=== PATIENT | female | born 1990 | race Caucasian/White ===

== ENCOUNTER 2016-12-27 16:47 | Emergency (ER) | payer MEDICAID ==
[2016-12-27 16:52] VITALS: BP 130/60
[2016-12-27 18:11] LABS: Hematocrit 37 % (35-47); Hemoglobin 12.3 g/dl (12.0-16.0); Mean Corpuscular HGB Conc 33 g/dl (31-36); Mean Corpuscular Hemoglobin 26 pg (27-31); Mean Corpuscular Volume 79 fL (80-97); Mean Platelet Volume 8 um3 (7.4-10.4); Red Blood Count 4.73 10^6/ul (4.0-5.4); Red Cell Distribution Width 15 % (10.5-15); White Blood Count 13.2 10^3/ul (3.5-10.8)
[2016-12-27 18:25] LABS: Urine Bacteria Absent (Absent); Urine Bilirubin Negative (Negative); Urine Glucose Negative (Negative); Urine Nitrite Negative (Negative)
[2016-12-27 18:29] LABS: Albumin 3.6 g/dL (3.2-5.2); BUN/Creatinine Ratio 19.5 (8-20); Calcium 9.2 mg/dL (8.6-10.3); EGFR African American 245.1 (>60); EGFR Non-African American 190.6 (>60); Globulin 3.2 g/dL (2-4); Potassium 3.4 mmol/L (3.5-5.0); Total Bilirubin 0.2 mg/dL (0.2-1.0); Total Protein 6.8 g/dL (6.4-8.9)
--- NOTE | 2016-12-27 18:46 | RAD ---
HISTORY: Cramping and vaginal bleeding in a female. Gestational age is unknown due to last menstrual period unknown. Comparison: None Multiple transabdominal real time images of the gravid uterus were obtained. This exam demonstrates a single intrauterine in the breech presentation. heart and limb motion were noted. The heart rate was 163 beats per minute. The placenta was located Posterior. There is currently complete placenta previa. The cervix is closed measuring 3.9 cm in length. The amniotic fluid volume appeared to be within normal limits measuring approximately 6.9 cm Biparietal diameter (cm) 3.73 which corresponds to a gestational age of 17 weeks and 3 days. Head circumference (cm) 13.97 which corresponds to a gestational age of 17 weeks and 3 the. abdominal circumference(cm) 12.0 to which corresponds to a gestational age of 17 weeks and 5 days. femur length (cm) 2.3 which corresponds to a gestational age of 7 weeks and 2 days. The composite estimated gestational age was 17 weeks and 4 day. The estimated weight at this time is 195 grams +/- 29 grams. A cine was recorded of the venous is four-chamber heart. IMPRESSION: Single live intrauterine gestation with composite growth parameters indicating average gestational age of 17 weeks and 2 days. At this stage of there is a complete placenta previa.
[2016-12-27] MEDS ORDERED: Fluconazole 100 MG TAB* TAB PO ONE (19:00)
--- NOTE | 2016-12-27 21:22 | ED ---
Ernestine Nolasco Anna, scribed for Rupert Jones MD on 12/27/16 at 1750 . GI/ HPI - HPI Summary HPI Summary: Pt is a 26 y/o female coming to [facility] presenting with vaginal bleeding that began last night at 2300. She additionally reports cramping abdominal pain with a severity of 4/10. The cramping is somewhat better today compared to last night. The bleeding is at a spotting level. She also has some vaginal discharge. She is currently 17 weeks . She took Tylenol for the pain last night, which did not alleviate the symptoms. LNMP was 07/2017. She was last seen by Duane [facility]IR in [place]. Her history is significant for a , an ovarian cyst, and a subchorionic hemorrhage. - History of Current Complaint Chief Complaint: EDVaginalBleeding Time Seen by Provider: 12/27/16 17:26 Stated Complaint: 17 WEEKS PREG/VAG BLEEDING Hx Obtained From: Patient Onset/Duration: Started Days Ago, Still Present Timing: Lasting Days Pain Intensity: 4 - Allergy/Home Medications Allergies/Adverse Reactions: Allergies Allergy/AdvReac Type Severity Reaction Status Date / Time No Known Allergies Allergy Verified 09/21/16 14:21 Home Medications: Home Medications Vitamin [Calna] 1 tab PO DAILY 12/27/16 [History Confirmed 12/27/16] PMH/Surg Hx/FS Hx/Imm Hx History: Reports: Other Problems/Disorders - Hx ovarian cyst, subchorionic hemorrhage - Surgical History Surgery Procedure, Year, and Place: Infectious Disease History: No Infectious Disease History: Denies: Traveled Outside the US in Last 30 Days - Family History Known Family History: Negative: Cardiac Disease, Diabetes - Social History Lives: With Family Alcohol Use: Rare Substance Use Type: Reports: None Smoking Status (MU): Never Smoked Tobacco Review of Systems Positive: Abdominal Pain Genitourinary: Other - vaginal bleeding Positive: discharge All Other Systems Reviewed And Are Negative: Yes Physical Exam - Summary Physical Exam Summary: General: No distress, comfortable, pleasant, alert HEENT: Moist mucosa, Pupils equal Neck: Soft, supple, no adenopathy, no edema Heart: S1, S2, RRR. No murmurs, rubs, gallops Lungs: Clear, breathing comfortably, no wheezes or rales Abd: Gravid, fundal height is height of umbilicus. No guarding or significant tenderness. 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 External labia minora swelling. Internal cottage cheese-like discharge, slightly yellow. No cervical friability. No cervical discharge. No cervical motion tenderness. Triage Information Reviewed: Yes Vital Signs On Initial Exam: Initial Vitals Temp Pulse Resp BP Pulse Ox 98.2 F 80 16 130/60 99 12/27/16 16:50 12/27/16 16:50 12/27/16 16:50 12/27/16 16:50 12/27/16 16:50 Vital Signs Reviewed: Yes Diagnostics - Vital Signs Vital Signs Temp Pulse Resp BP Pulse Ox 12/27/16 16:50 98.2 F 80 16 130/60 99 - Laboratory Lab Results: Lab Results 12/27/16 12/27/16 12/27/16 Range/Units 18:00 18:00 18:00 WBC 13.2 H (3.5-10.8) 10^3/ul RBC 4.73 (4.0-5.4) 10^6/ul Hgb 12.3 (12.0-16.0) g/dl Hct 37 (35-47) % MCV 79 L (80-97) fL MCH 26 L (27-31) pg MCHC 33 (31-36) g/dl RDW 15 (10.5-15) % Plt Count 357 (150-450) 10^3/ul MPV 8 (7.4-10.4) um3 Neut % (Auto) 76.5 (38-83) % Lymph % (Auto) 16.4 L (25-47) % [place] % (Auto) 5.2 (1-9) % Eos % (Auto) 1.2 (0-6) % Baso % (Auto) 0.7 (0-2) % Absolute Neuts (auto) 10.1 H (1.5-7.7) 10^3/ul Absolute Lymphs (auto) 2.2 (1.0-4.8) 10^3/ul Absolute Monos (auto) 0.7 (0-0.8) 10^3/ul Absolute Eos (auto) 0.2 (0-0.6) 10^3/ul Absolute Basos (auto) 0.1 (0-0.2) 10^3/ul Absolute Nucleated RBC 0 10^3/ul Nucleated RBC % 0 INR (Anticoag Therapy) 0.94 (0.89-1.11) APTT 28.6 (26.0-36.3) seconds Sodium (133-145) mmol/L Potassium (3.5-5.0) mmol/L Chloride (101-111) mmol/L Carbon Dioxide (22-32) mmol/L Anion Gap (2-11) mmol/L BUN (6-24) mg/dL Creatinine (0.51-0.95) mg/dL Est GFR ( Amer) (>60) Est GFR (Non-Af Amer) (>60) BUN/Creatinine Ratio (8-20) Glucose (70-100) mg/dL Calcium (8.6-10.3) mg/dL Total Bilirubin (0.2-1.0) mg/dL AST (13-39) U/L ALT (7-52) U/L Alkaline Phosphatase (34-104) U/L Total Protein (6.4-8.9) g/dL Albumin (3.2-5.2) g/dL Globulin (2-4) g/dL Albumin/Globulin Ratio (1-3) Beta HCG, Quant mIU/mL Urine Color Yellow Urine Appearance Cloudy Urine pH 6.0 (5-9) Ur Specific [place] 1.014 (1.010-1.030) Urine Protein Negative (Negative) Urine Ketones Negative (Negative) Urine Blood 1+ H (Negative) Urine Nitrate Negative (Negative) Urine Bilirubin Negative (Negative) Urine Urobilinogen Negative (Negative) Ur Leukocyte Esterase 3+ H (Negative) Urine WBC (Auto) 3+(>20/hpf) H (Absent) Urine RBC (Auto) 3+(>10/hpf) H (Absent) Ur Squamous Epith Cells Present H (Absent) Urine Bacteria Absent (Absent) Urine Glucose Negative (Negative) Blood Type Antibody Screen 12/27/16 12/27/16 Range/Units 18:00 18:00 WBC (3.5-10.8) 10^3/ul RBC (4.0-5.4) 10^6/ul Hgb (12.0-16.0) g/dl Hct (35-47) % MCV (80-97) fL MCH (27-31) pg MCHC (31-36) g/dl RDW (10.5-15) % Plt Count (150-450) 10^3/ul MPV (7.4-10.4) um3 Neut % (Auto) (38-83) % Lymph % (Auto) (25-47) % [place] % (Auto) (1-9) % Eos % (Auto) (0-6) % Baso % (Auto) (0-2) % Absolute Neuts (auto) (1.5-7.7) 10^3/ul Absolute Lymphs (auto) (1.0-4.8) 10^3/ul Absolute Monos (auto) (0-0.8) 10^3/ul Absolute Eos (auto) (0-0.6) 10^3/ul Absolute Basos (auto) (0-0.2) 10^3/ul Absolute Nucleated RBC 10^3/ul Nucleated RBC % INR (Anticoag Therapy) (0.89-1.11) APTT (26.0-36.3) seconds Sodium 132 L (133-145) mmol/L Potassium 3.4 L (3.5-5.0) mmol/L Chloride 103 (101-111) mmol/L Carbon Dioxide 23 (22-32) mmol/L Anion Gap 6 (2-11) mmol/L BUN 8 (6-24) mg/dL Creatinine 0.41 L (0.51-0.95) mg/dL Est GFR ( Amer) 245.1 (>60) Est GFR (Non-Af Amer) 190.6 (>60) BUN/Creatinine Ratio 19.5 (8-20) Glucose 90 (70-100) mg/dL Calcium 9.2 (8.6-10.3) mg/dL Total Bilirubin 0.20 (0.2-1.0) mg/dL AST 14 (13-39) U/L ALT 12 (7-52) U/L Alkaline Phosphatase 67 (34-104) U/L Total Protein 6.8 (6.4-8.9) g/dL Albumin 3.6 (3.2-5.2) g/dL Globulin 3.2 (2-4) g/dL Albumin/Globulin Ratio 1.1 (1-3) Beta HCG, Quant 81134.00 mIU/mL Urine Color Urine Appearance Urine pH (5-9) Ur Specific [place] (1.010-1.030) Urine Protein (Negative) Urine Ketones (Negative) Urine Blood (Negative) Urine Nitrate (Negative) Urine Bilirubin (Negative) Urine Urobilinogen (Negative) Ur Leukocyte Esterase (Negative) Urine WBC (Auto) (Absent) Urine RBC (Auto) (Absent) Ur Squamous Epith Cells (Absent) Urine Bacteria (Absent) Urine Glucose (Negative) Blood Type O Positive Antibody Screen Negative Result Diagrams: 12/27/16 18:00 12/27/16 18:00 Lab Statement: Any lab studies that have been ordered have been reviewed, and results considered in the medical decision making process. - Ultrasound No standard instances Ultrasound Interpretation: Positive (See Comments) Ultrasound Interpretation Completed By: Radiologist - US IMPRESSION: Single live intrauterine gestation with composite growth parameters indicating average gestational age of 17 weeks and 2 days. At this stage of there is a complete placenta previa. GIGU Course/Dx - Course Assessment/Plan: She presents for spotting and cramping both of which have largely resolved. She has symptoms as well as signs consistent with yeast infection. US shows single IUP with complete placenta previa. We recommend pelvic rest until cleared by new OB doctor. We will consult OB to arrange for earlier follow up. UA shows 20 WCs. Will await culture before treating. Otherwise, she is to return immediately for any worsening symptoms or heavier bleeding. - Diagnoses Provider Diagnoses: Placenta previa, Vaginal bleeding before 22 weeks gestation, Yeast vaginitis - Physician Notifications Discussed Care Of Patient With: Dr. Guzman (OBGYN) at 1905. Will arrange for follow up with the patient in this coming week. Discharge - Discharge Plan Condition: Good Disposition: HOME Patient Education Materials: Threatened Miscarriage (ED) Referrals: No Primary Care Phys,NOPCP [Primary Care Provider] - Additional Instructions: follow up with your new OB doctor as we described. Pelvic rest until told otherwise by your new OB. The documentation as recorded by the Ernestine tovar Anna accurately reflects the service I personally performed and the decisions made by me, Rupert Jones MD.
== END 2016-12-27 19:26 | disposition home or self-care (01) ==
LOC: ED 16:47
DX: O20.9 Hemorrhage in early pregnancy, unspecified (principal); O44.02 Complete placenta previa NOS or without hemorrhage, second trimester; Z3A.22 22 weeks gestation of pregnancy; R10.9 Unspecified abdominal pain; N76.0 Acute vaginitis
CPT/HCPCS: 36415; 76815; 80053; 81003; 81015; 84702; 85025; 85610; 85730; 86850; 86900; 86901; 87086; 87480; 87491; 87510; 87591; 99282; A9270-GY

== ENCOUNTER 2017-03-28 13:07 | Emergency (ER) | payer OTHER ==
[2017-03-28 13:46] VITALS: BP 118/64
[2017-03-28 14:12] LABS: Urine Bacteria 1+ (Absent); Urine Bilirubin Negative (Negative); Urine Glucose Negative (Negative); Urine Nitrite Negative (Negative)
[2017-03-28] MEDS ORDERED: Nitrofurantoin Macrocrystals* 50 MG CAP PO ONE (15:25)
--- NOTE | 2017-03-29 14:42 | ED ---
Danyelle Nolasco Matthew, scribed for Gomez Kauffman MD on 03/28/17 at 1424 . Abdominal Pain/Female - HPI Summary HPI Summary: A 26 y/o 30 week female presents with intermittent right flank pain since last night that is described as cramping/sharp. The pain is unaffected by movement. She a recent Hx of UTI, yeast infection, and now a bladder infection. She received Abx on 02/24 from her [facility]; however she states that she continues to have dysuria during urination and afterwards. She's been one other time. - History of Current Complaint Chief Complaint: Miley Stated Complaint: 30 WEEKS PREG CRAMPING Time Seen by Provider: 03/28/17 13:24 Hx Obtained From: Patient ?: Yes Onset/Duration: Lasting Days - yesterday, Still Present Timing: Intermittent Episode Lasting Severity Initially: Moderate Severity Currently: Moderate Pain Intensity: 6 Pain Scale Used: 0-10 Numeric Location: Flank - RT Character: Sharp, Cramping Aggravating Factor(s): Nothing Alleviating Factor(s): Nothing Associated Signs and Symptoms: Positive: Urinary Symptoms - dysuria Allergies/Adverse Reactions: Allergies Allergy/AdvReac Type Severity Reaction Status Date / Time No Known Allergies Allergy Verified 03/28/17 14:01 PMH/Surg Hx/FS Hx/Imm Hx Endocrine/Hematology History: Denies: Hx Diabetes History: Reports: Other Problems/Disorders - Hx ovarian cyst, subchorionic hemorrhage - Surgical History Surgery Procedure, Year, and Place: Infectious Disease History: Denies: Traveled Outside the [place] in Last 30 Days - Family History Known Family History: Negative: Cardiac Disease, Diabetes Family History: pt denies significant FHx - Social History Alcohol Use: Rare Substance Use Type: Reports: None Smoking Status (MU): Never Smoked Tobacco Review of Systems Constitutional: Negative Eyes: Negative ENT: Negative Cardiovascular: Negative Respiratory: Negative Positive: Abdominal Pain - intermittent RT flank pain Positive: dysuria Musculoskeletal: Negative Skin: Negative Neurological: Negative Psychological: Normal All Other Systems Reviewed And Are Negative: Yes Physical Exam Triage Information Reviewed: Yes Vital Signs On Initial Exam: Initial Vitals Temp Pulse Resp BP Pulse Ox 97.8 F 89 18 122/74 100 03/28/17 13:09 03/28/17 13:09 03/28/17 13:09 03/28/17 13:09 03/28/17 13:09 Vital Signs Reviewed: Yes Appearance: Positive: Well-Appearing, No Pain Distress Skin: Positive: Warm, Skin Color Reflects Adequate Perfusion, Dry Head/Face: Positive: Normal Head/Face Inspection Eyes: Positive: Normal ENT: Positive: Normal ENT inspection Neck: Positive: Supple, Nontender Respiratory/Lung Sounds: Positive: Clear to Auscultation, Breath Sounds Present Cardiovascular: Positive: RRR Abdomen Description: Positive: Nontender, Soft, Other: - Gravid abdomen Bowel Sounds: Positive: Present Musculoskeletal: Positive: Normal, Strength/ROM Intact Neurological: Positive: Normal, Alert, Oriented to Person Place, Time Psychiatric: Positive: Affect/Mood Appropriate Diagnostics - Vital Signs Vital Signs Temp Pulse Resp BP Pulse Ox 03/28/17 13:09 97.8 F 89 18 122/74 100 - Laboratory Lab Results: Lab Results 03/28/17 Range/Units 13:39 Urine Color Yellow Urine Appearance Cloudy Urine pH 6.0 (5-9) Ur Specific [place] 1.006 L (1.010-1.030) Urine Protein Negative (Negative) Urine Ketones Negative (Negative) Urine Blood 1+ H (Negative) Urine Nitrate Negative (Negative) Urine Bilirubin Negative (Negative) Urine Urobilinogen Negative (Negative) Ur Leukocyte Esterase 3+ H (Negative) Urine WBC (Auto) 3+(>20/hpf) H (Absent) Urine RBC (Auto) Trace(0-2/hpf) (Absent) Ur Squamous Epith Cells Present H (Absent) Urine Bacteria 1+ H (Absent) Urine Glucose Negative (Negative) Lab Statement: Any lab studies that have been ordered have been reviewed, and results considered in the medical decision making process. Abdominal Pain Fem Course/Dx - Course Course Of Treatment: Ms. Luis had a UTI diagnosed on 02/24 and then had similar symptoms and was diagnosed with candidiasis. Now she has symptoms again although she feels as though her symptoms never really completely abated. He U/ A is positive and given she is 3rd trimester, I will treat her again. - Diagnoses Provider Diagnoses: UTI (urinary tract infection) Discharge - Discharge Plan Condition: Stable Disposition: HOME Prescriptions: Nitrofurantoin Macrocrystals* [Macrodantin*] 50 mg PO Q6HR #27 cap Patient Education Materials: Nitrofurantoin Macrocrystals (By mouth), Urinary Tract Infection in (ED) Referrals: [facility] [place] PHYSICIAN REFERRAL [Outside] - 4 Days Additional Instructions: Please follow-up with your primary care physician in 4 days. The documentation as recorded by the Danyelle tovar Matthew accurately reflects the service I personally performed and the decisions made by me, Gomez Kauffman MD.
--- NOTE | 2017-03-30 10:07 | ED ---
Progress - Progress Note Progress Note: Pt's urine cx reveals e. coli 10-25,000 - was started on nitrofurantoin - sensitivities pending Course/Dx - Course Course Of Treatment: Ms. Luis had a UTI diagnosed on 02/24 and then had similar symptoms and was diagnosed with candidiasis. Now she has symptoms again although she feels as though her symptoms never really completely abated. He U/ A is positive and given she is 3rd trimester, I will treat her again. - Diagnoses Provider Diagnoses: UTI (urinary tract infection)
== END 2017-03-28 16:03 | disposition home or self-care (01) ==
LOC: ED 13:07
DX: N39.0 Urinary tract infection, site not specified (principal); R30.0 Dysuria; R10.84 Generalized abdominal pain
CPT/HCPCS: 81003; 81015; 87077; 87086; 87186; 99282; A9270-GY

== ENCOUNTER 2017-05-18 09:29 | Inpatient (IN) | payer OTHER ==
[2017-05-18 11:24] LABS: Hematocrit 41 % (35-47); Hemoglobin 13.1 g/dl (12.0-16.0); Mean Corpuscular HGB Conc 32 g/dl (31-36); Mean Corpuscular Hemoglobin 27 pg (27-31); Mean Corpuscular Volume 85 fL (80-97); Mean Platelet Volume 9 um3 (7.4-10.4); Red Blood Count 4.85 10^6/ul (4.0-5.4); Red Cell Distribution Width 17 % (10.5-15)
[2017-05-18 11:51] LABS: Albumin 3.3 g/dL (3.2-5.2); BUN/Creatinine Ratio 11.4 (8-20); Calcium 8.9 mg/dL (8.6-10.3); EGFR African American 132.2 (>60); EGFR Non-African American 102.8 (>60); Globulin 3.2 g/dL (2-4); Potassium 3.8 mmol/L (3.5-5.0); Total Bilirubin 0.4 mg/dL (0.2-1.0); Total Protein 6.5 g/dL (6.4-8.9); Uric Acid 6.2 mg/dL (2.3-6.6)
[2017-05-18] MEDS: Amoxicillin CAP* 500 MG PO SCH ×2 (12:48→21:15)
[2017-05-18] MEDS ORDERED: Acetaminophen TAB* 325 MG PO PRN (15:07)
[2017-05-19] MEDS: Amoxicillin CAP* 500 MG PO SCH (09:34)
[2017-05-19 10:46] LABS: Urine Total Protein/24HR 320 mg/24Hr (0-165)
[2017-05-19 13:24] LABS: Hematocrit 40 % (35-47); Hemoglobin 13.4 g/dl (12.0-16.0); Mean Corpuscular HGB Conc 34 g/dl (31-36); Mean Corpuscular Hemoglobin 28 pg (27-31); Mean Corpuscular Volume 83 fL (80-97); Mean Platelet Volume 10 um3 (7.4-10.4); Red Blood Count 4.79 10^6/ul (4.0-5.4); Red Cell Distribution Width 17 % (10.5-15); White Blood Count 11.9 10^3/ul (3.5-10.8)
[2017-05-19] MEDS ORDERED: ceFOXitin 2 GM IVPREMIX* 2 GM/50 ML BAG IVPB ONE (13:24)
[2017-05-19] MEDS ORDERED: Sodium Citrate/Citric Acid* 15 ML UDC PO ONE (13:24)
[2017-05-19] MEDS ORDERED: Morphine PF AMP (0.5MG/ML)* 5 MG/10 ML AMP ONE (15:49)
[2017-05-19] MEDS ORDERED: OXYTOCIN* 10 UNITS/ML 1 ML VIAL ONE (15:49)
[2017-05-19] MEDS ORDERED: Ondansetron INJ* 2 MG/ML VIAL ONE (15:49)
[2017-05-19] MEDS ORDERED: Dexamethasone IV* 4 MG/ML 1 ML (4 MG) ONE (15:49)
[2017-05-19] MEDS ORDERED: EPHEDrine (Pressors)* 50 MG/ML VIAL ONE (16:16)
[2017-05-19] MEDS ORDERED: Acetaminophen IV 1GM/100ML * 100 ML IVPB ONE (16:36)
[2017-05-19] MEDS ORDERED: fentaNYL* 50 MCG/ML 2 ML VIAL (100 MCG VIAL) IV PRN (16:36)
[2017-05-19] MEDS ORDERED: Ketorolac INJ* 30 MG/ML 1 ML VIAL IV PRN (16:36)
[2017-05-19] MEDS ORDERED: Nalbuphine* 20 MG/ML 1 ML VIAL IV PRN ×2 (16:36→16:38)
[2017-05-19] MEDS ORDERED: PROCHLORPERAZINE INJ 5 MG/ML 2 ML VIAL IV PRN ×2 (16:36→16:38)
[2017-05-19] MEDS ORDERED: oxyCODONE TAB* 5 MG TAB PO PRN ×2 (16:36→16:38)
[2017-05-19] MEDS ORDERED: Scopolamine 1.5 mg* PATCH TRANSDERM PRN (16:38)
[2017-05-19] MEDS ORDERED: Ondansetron INJ* 2 MG/ML VIAL IV PRN (16:38)
[2017-05-19] MEDS ORDERED: Scopolomine PATCH Remove* 1 NOTE MISC PATCH OFF PRN (16:38)
[2017-05-19] MEDS ORDERED: Naloxone* 0.4 MG/ML 1 ML VIAL IV PRN (16:38)
[2017-05-19] MEDS ORDERED: Witch Hazel PAD* JAR TOPICAL PRN (17:05)
[2017-05-19] MEDS ORDERED: Zolpidem TAB* 5 MG PO PRN (17:05)
[2017-05-19] MEDS ORDERED: Dibucaine 1% 28.35 GM TUBE PR PRN (17:05)
[2017-05-19] MEDS ORDERED: Glycerin ADULT SUPP PR PRN (17:05)
[2017-05-20] MEDS: Acetaminophen TAB* 325 MG PO SCH ×2 (01:13→09:29)
[2017-05-20] MEDS: Simethicone CHEW TAB* 80 MG PO SCH ×5 (01:16→21:34)
[2017-05-20] MEDS: Docusate CAP* 100 MG PO SCH ×4 (01:16→21:34)
[2017-05-20] MEDS: oxyCODONE/Acetamin 5/325 MG* TAB PO PRN ×4 (06:57→21:34)
[2017-05-20 07:45] LABS: Hematocrit 34 % (35-47); Hemoglobin 11.1 g/dl (12.0-16.0); Mean Corpuscular HGB Conc 32 g/dl (31-36); Mean Corpuscular Hemoglobin 27 pg (27-31); Mean Corpuscular Volume 84 fL (80-97); Mean Platelet Volume 9 um3 (7.4-10.4); Red Blood Count 4.05 10^6/ul (4.0-5.4); Red Cell Distribution Width 16 % (10.5-15); White Blood Count 24.1 10^3/ul (3.5-10.8)
[2017-05-20 07:46] LABS: Add Diff/Slide Review? Slide Review Added; Comments Flag Yes
[2017-05-20] MEDS: Ibuprofen TAB* 600 MG PO PRN ×3 (08:44→21:34)
[2017-05-20] MEDS ORDERED: Ferrous Gluconate TAB* 324 MG TAB PO SCH (09:00)
[2017-05-20] MEDS ORDERED: Acetaminophen TAB* 325 MG PO PRN (17:00)
--- NOTE | 2017-05-20 23:44 | OP ---
DATE OF OPERATION: 05/19/17 - ROOM #[id number]-101 TIME: 05:15 p.m. DATE OF : 92 SURGEON: Deyvi Velasco MD. PASSENGER REPRESENTATIVE: Gladis Shukla, Lute Packer Or Applier. ANESTHESIA: Spinal. PRE-OP DIAGNOSIS: Intrauterine at 38 weeks with preeclampsia and a previous section. The patient desires a repeat section. POST-OP DIAGNOSIS: Intrauterine at 38 weeks with preeclampsia and a previous section. The patient desires a repeat section. OPERATIVE PROCEDURE: Repeat low transverse section with vacuum assistance of delivery of the head. ESTIMATED BLOOD LOSS: 600 cc. SPECIMEN SENT TO PATHOLOGY: Cord blood. IV FLUIDS: She received 2800 cc of IV crystalloid fluid. URINE OUTPUT: Clear at 500 cc. FINDINGS: Delivery of a viable male with over clear fluid with a weight of 6 pounds and 2 ounces with Apgars of 9 and 9. The placenta was grossly intact with a three-vessel cord noted. The uterus, adnexa, bowel, and bladder were all within normal limits and there were no complications. DESCRIPTION OF PROCEDURE: The patient was taken to the operating room, where she was identified. She was placed on the operating table, where a spinal anesthetic was obtained without difficulty. She was then placed in the supine position with a leftward tilt, prepped and draped in a normal sterile fashion. A Pfannenstiel skin incision was made with a knife about 4 cm above the symphysis pubis and carried through to the underlying layer of fascia. The fascia was nicked in the midline and extended laterally with curved Vargas scissors. The fascia was then grasped superiorly and inferiorly with Ariel clamps and dissected off sharply from the rectus muscle. The rectus muscle was in the midline bluntly. The peritoneum was identified, grasped with pickups, and entered sharply with Metzenbaum scissors, and extended superiorly and inferiorly sharply. A bladder blade was then inserted into the patient's abdomen. A bladder flap was created using Metzenbaum scissors over which the bladder blade was then reinserted. A low-transverse incision was then made with a knife and extended laterally with bandage scissors. The amniotic sac was ruptured. The fluid was noted to be clear. The infant's head was then grasped. There was difficulty in delivering the baby's head, so a vacuum was applied to the baby's head and the head was delivered atraumatically. The vacuum was then removed. The 's mouth and nose were suctioned. The rest of the infant's body was then delivered. The cord was clamped and cut, and the infant was handed off to awaiting certified wellness program coordinator. Cord bloods were obtained. The placenta was then removed manually. The uterus was then exteriorized, cleared of all clot and debris using moist laparotomy sponges. The uterine incision was then closed with 0 Polysorb suture in a running locked fashion with a second imbricating layer of 0 Polysorb suture with good hemostasis noted. At this point, the uterus was then returned to the patient's abdomen. The gutters were then cleared of all clots and debris using moist laparotomy sponges. All the sponges and instruments were removed from the patient's abdomen. The peritoneum was then closed using 3-0 Polysorb suture in a running fashion. The fascia was closed using 0 Polysorb suture in a running fashion and the skin was closed with 4- 0 Monocryl subcuticular stitch. The patient tolerated the procedure well. Sponge, lap, needle counts were correct x2. She was then transferred to the recovery room area in stable condition. [id number]/[facility] #: [id number] ANABELA
[2017-05-21] MEDS ORDERED: diPHENhydraMINE PO* 50 MG PO ONE (00:35)
[2017-05-21] MEDS ORDERED: diPHENhydraMINE PO* 50 MG ONE (00:42)
[2017-05-21] MEDS: oxyCODONE/Acetamin 5/325 MG* TAB PO PRN ×5 (02:00→20:30)
[2017-05-21] MEDS: Ibuprofen TAB* 600 MG PO PRN ×3 (06:45→23:23)
[2017-05-21] MEDS: Simethicone CHEW TAB* 80 MG PO SCH ×4 (09:03→20:30)
[2017-05-21] MEDS: Docusate CAP* 100 MG PO SCH ×3 (09:03→20:30)
[2017-05-21 19:28] VITALS: BP 141/79
[2017-05-22] MEDS: oxyCODONE/Acetamin 5/325 MG* TAB PO PRN ×3 (00:28→09:33)
[2017-05-22] MEDS: Ibuprofen TAB* 600 MG PO PRN (05:26)
[2017-05-22] MEDS: Simethicone CHEW TAB* 80 MG PO SCH (09:33)
[2017-05-22] MEDS: Docusate CAP* 100 MG PO SCH (09:33)
== END 2017-05-22 12:25 | disposition home or self-care (01) | DRG 540 ==
LOC: MCHOBOUT 09:29 → MCHOB 05-19 11:32
PROVIDERS: ADMIT Obstetrics & Gynecology; ATTEND Obstetrics & Gynecology
PROC: 10D00Z1 Extraction of Products of Conception, Low, Open Approach (ICD-10-PCS; 2017-05-19)
PROC: 4A1HX4Z Monitoring of Products of Conception, Cardiac Electrical Activity, External Approach (ICD-10-PCS; principal; 2017-05-19 15:53)
DX: O14.04 Mild to moderate pre-eclampsia, complicating childbirth (principal); O99.824 Streptococcus B carrier state complicating childbirth; O34.211 Maternal care for low transverse scar from previous cesarean delivery; Z3A.38 38 weeks gestation of pregnancy; Z37.0 Single live birth; O66.5 Attempted application of vacuum extractor and forceps
CPT/HCPCS: 36415; 80053; 84156; 84550; 85025; 85027; 86850; 86900; 86901; A9270-GY; J0694; J0780; J1100; J2300; J2405; J2590

== ENCOUNTER 2017-06-28 20:01 | Emergency (ER) | payer MEDICAID, OTHER ==
[2017-06-28 20:13] VITALS: BP 120/69
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
== END 2017-06-28 22:08 | disposition home or self-care (01) ==
LOC: UCEAST 20:01
DX: M54.2 Cervicalgia (principal); M54.6 Pain in thoracic spine; M54.5 Low back pain
CPT/HCPCS: 72050; 72070; 72110; 99211; G0463

== ENCOUNTER 2019-03-11 10:41 | Emergency (ER) | payer OTHER ==
--- NOTE | 2019-03-11 11:14 | ED ---
Psychiatric Complaint - HPI Summary HPI Summary: This patient is a 28 year old female presenting to [facility] [place] accompanied by friend with a chief complaint of SI and MHE since a week ago. Patient is brought to ED by her friend. Patient herself states she wishes to see a doctor for mental health medication. Since a week ago, patient has been off her medication and she states that she needs something for her depression and anxiety. Patient used to take fluoxetine. Patient states that she is sleeping and eating normally. Patient has been dealing with depression since 4 years ago. Patient reports SI. - History Of Current Complaint Chief Complaint: EDMentalHealth Time Seen by Provider: 03/11/19 11:00 Hx Obtained From: Patient Hx Last Menstrual Period: post 5 weeks Onset/Duration: Lasting Weeks - 1, Still Present Timing: Constant Severity Currently: Moderate Character: Depressed, Anxious Aggravating Factor(s): Nothing Alleviating Factor(s): Nothing Associated Signs And Symptoms: Negative: Sleep Disturbance, Appetite Change Related History: Positive For: Prior Psychiatric Issues Has Suicidal: Reports: Thoughts - Allergies/Home Medications Allergies/Adverse Reactions: Allergies Allergy/AdvReac Type Severity Reaction Status Date / Time No Known Allergies Allergy Verified 03/11/19 10:59 Home Medications: Home Medications NK [No Home Medications Reported] 03/11/19 [History Confirmed 03/11/19] PMH/Surg Hx/FS Hx/Imm Hx Previously Healthy: Yes Endocrine/Hematology History: Denies: Hx Diabetes History: Reports: Other Problems/Disorders - uti's Psychiatric History: Reports: Hx Anxiety, Hx Depression - Surgical History Surgery Procedure, Year, and Place: X2 Infectious Disease History: No Infectious Disease History: Denies: Traveled Outside the [place] in Last 30 Days - Family History Known Family History: Positive: Hypertension, Diabetes, Other - Cancer Negative: Cardiac Disease - Social History Lives: With Family Alcohol Use: Daily Hx Substance Use: No Substance Use Type: Reports: None Hx Tobacco Use: No Smoking Status (MU): Never Smoked Tobacco Have You Smoked in the Last Year: No Review of Systems Negative: Fever Positive: Anxious, Depressed, Other - SI All Other Systems Reviewed And Are Negative: Yes Physical Exam - Summary Physical Exam Summary: VITAL SIGNS: Reviewed. GENERAL: Patient is a well-developed and nourished female who is lying comfortable in the stretcher. Patient is not in any acute respiratory distress. HEAD AND FACE: No signs of trauma. No ecchymosis, hematomas or skull depressions. No sinus tenderness. EYES: PERRLA, EOMI x 2, No injected conjunctiva, no nystagmus. EARS: Hearing grossly intact. Ear canals and tympanic membranes are within normal limits. MOUTH: Oropharynx within normal limits. NECK: Supple, trachea is midline, no adenopathy, no JVD, no carotid bruit, no c- spine tenderness, neck with full ROM. CHEST: Symmetric, no tenderness at palpation LUNGS: Clear to auscultation bilaterally. No wheezing or crackles. CVS: Regular rate and rhythm, S1 and S2 present, no murmurs or gallops appreciated. ABDOMEN: Soft, non-tender. No signs of distention. No rebound no guarding, and no masses palpated. Bowel sounds are normal. EXTREMITIES: FROM in all major joints, no edema, no cyanosis or clubbing. NEURO: Alert and oriented x 3. No acute neurological deficits. Speech is normal and follows commands. SKIN: Dry and warm Triage Information Reviewed: Yes Vital Signs On Initial Exam: Initial Vitals Temp Pulse Resp BP Pulse Ox 99.6 F 100 18 142/94 98 03/11/19 10:54 03/11/19 10:54 03/11/19 10:54 03/11/19 10:54 03/11/19 10:54 Vital Signs Reviewed: Yes Diagnostics - Vital Signs Vital Signs Temp Pulse Resp BP Pulse Ox 03/11/19 10:54 99.6 F 100 18 142/94 98 - Laboratory Result Diagrams: 03/11/19 11:39 03/11/19 11:39 Lab Statement: Any lab studies that have been ordered have been reviewed, and results considered in the medical decision making process. Course/Dx - Course Assessment/Plan: Blood work w/o a significant abnormality. She is medically cleared. She is awaiting for a MHE. Patient is hemodynamically stable and A+O x 3. Mental health crystal evaluator, Dada Carson, reports that the patient is clear for discharge by Dr. Ramachandran. The patient is diagnosed with unspecified anxiety disorder. - Differential Dx/Clinical Impression Provider Diagnosis: Anxiety disorder, unspecified - Physician Notifications Discussed Care Of Patient With: Dada Carson - mental health crystal evaluator Time Discussed With Above Provider: 18:05 Instructed by Provider To: Other - Dada Carson, mental health crystal evaluator, reports that the patient is clear for discharge by Dr. Ramachandran, psychiatrist. The patient is diagnosed with unspecified anxiety disorder. Discharge - Sign-Out/Discharge Documenting (check all that apply): Patient Departure - Patient will be discharged home. Patient Received Moderate/Deep Sedation with Procedure: No - Discharge Plan Condition: Stable Disposition: HOME Patient Education Materials: Anxiety (ED) Referrals: [facility] [place] [place] PHYSICIAN REFERRAL [Outside] Additional Instructions: Follow up with services as planned. RETURN TO THE EMERGENCY DEPARTMENT FOR ANY NEW OR WORSENING SYMPTOMS. Instructions to copy and paste for Adult patients: Per completion of a mental health evaluation, you are cleared for release and do not require inpatient psychiatric hospitalization at this time. Please go to nearest emergency room or call 911 if safety concerns arise or condition worsens. Important Phone Numbers: [facility] ph:[phone] [facility] Crisis [facility] ph:[phone] National Suicide Prevention Lifeline ph:[phone] (6612) [facility] ph:[phone] Alcoholics Anonymous ph:[phone] [facility] ph:[phone] [employer] ph:[phone] Recommendation: Follow up with [facility] on Thursday to schedule intake. . Return to hospital, if needed. - Billing Disposition and Condition Condition: STABLE Disposition: Home - Attestation Statements Document Initiated by Scribe: Yes Documenting Scribe: Sara Christian Provider For Whom Tyrese is Documenting (Include Credential): Jono Landis MD Scribe Attestation: Sara Nolasco, scribed for Jono Landis MD on 03/11/19 at 2105. Scribe Documentation Reviewed: Yes Provider Attestation: The documentation as recorded by the Sara tovar accurately reflects the service I personally performed and the decisions made by me, Jono Landis MD Status of Scribe Document: Ready
[2019-03-11 11:47] LABS: ABS Basophils 0 10^3/ul (0-0.2); ABS Eosinophils 0 10^3/ul (0-0.6); ABS Lymphocytes 1.1 10^3/ul (1.0-4.8); ABS Monocytes 0.6 10^3/ul (0-0.8); ABS Neutrophils 5.2 10^3/ul (1.5-7.7); ABS Nucleated RBC 0 10^3/ul; Eosinophil % 0.6 %; Hematocrit 44 % (33-41); Hemoglobin 15.2 g/dL (12.0-16.0); Lymphocyte % 15.4 %; Mean Corpuscular HGB Conc 34 g/dL (31-36); Mean Corpuscular Hemoglobin 30 pg (27-31); Mean Corpuscular Volume 86 fL (80-97); Mean Platelet Volume 7.7 fL (7.4-10.4); Nucleated Red Blood Cells % 0.1; Platelet Count 271 10^3/uL (150-450); Red Blood Count 5.11 10^6 /uL (3.70-4.87); Red Cell Distribution Width 13 % (10.5-15); White Blood Count 6.9 10^3/uL (3.5-10.8)
[2019-03-11 12:14] LABS: ALT 16 U/L (7-52); AST 19 U/L (13-39); Albumin 4.7 g/dL (3.2-5.2); Albumin/Globulin Ratio 1.6 (1-3); Alkaline Phosphatase 95 U/L (34-104); Anion Gap 6 mmol/L (2-11); BUN/Creatinine Ratio 9.5 (8-20); Blood Urea Nitrogen 7 mg/dL (6-24); CO2 Carbon Dioxide 26 mmol/L (22-32); Calcium 9.5 mg/dL (8.6-10.3); Chloride 107 mmol/L (101-111); EGFR African American 114.8 (>60); EGFR Non-African American 94.9 (>60); Glucose 108 mg/dL (70-100); Potassium 3.7 mmol/L (3.5-5.0); Sodium 139 mmol/L (135-145); Total Protein 7.7 g/dL (6.4-8.9)
[2019-03-11 12:18] LABS: Urine Appearance Cloudy; Urine Bacteria Absent (Absent); Urine Bilirubin Negative (Negative); Urine Blood 2+ (Negative); Urine Color Yellow; Urine Glucose Negative (Negative); Urine Ketones Negative (Negative); Urine Nitrite Negative (Negative); Urine Protein Negative (Negative); Urine Red Blood Cell Trace(0-2/hpf) (Absent); Urine Specific Gravity 1.014 (1.010-1.030); Urine Squamous Epithelial Cell Present (Absent); Urine Urobilinogen Negative (Negative); Urine White Blood Cell Absent (Absent)
[2019-03-11 12:31] LABS: Alcohol < 10 mg/dL (<10); Salicylate < 2.50 mg/dL (<30)
[2019-03-11 12:35] LABS: Urine Benzodiazepine Screen None Detected (None Detect); Urine Opiates Screen None Detected (None Detect)
[2019-03-11 12:45] LABS: TSH (Thyroid Stimulating Horm) 4.72 mcIU/mL (0.34-5.60)
[2019-03-11 12:49] LABS: Acetaminophen 1 mcg/mL
[2019-03-11 18:22] VITALS: BP 125/71
== END 2019-03-11 18:21 | disposition home or self-care (01) ==
LOC: ED 10:41
DX: F41.9 Anxiety disorder, unspecified (principal); R45.851 Suicidal ideations; F32.9 Major depressive disorder, single episode, unspecified
CPT/HCPCS: 36415; 80053; 80307; 80320; 80329; 81003; 81015; 84443; 85025; 99285; G0480

== ENCOUNTER 2019-12-01 22:56 | Observation (INO) | payer OTHER ==
--- NOTE | 2019-12-01 23:10 | ED ---
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 Since syncopal episode complains of blurry vision, altered mental status , weakness, and difficulty ambulating. States she was feeling fine prior to syncopal episode. Denies history of syncopal episodes. Denies new medications , injury due to syncopal episode. Denies EtOH, recreational drug use. Denies symptoms of illness or pain. Patient has history of anxiety. - History Of Current Complaint Chief Complaint: EDDizziness Time Seen by Provider: 12/01/19 23:08 Hx Obtained From: Patient Onset/Duration: Sudden Onset Timing: Intermittent Episode Lasting Context: Witnessed Activity At Onset: Exertion Associated Head Trauma: No Aggravating Factor(s): Nothing Alleviating Factor(s): Spontaneous Resolution Associated Signs And Symptoms: AMS, Lightheadedness - Allergies/Home Medications Allergies/Adverse Reactions: Allergies Allergy/AdvReac Type Severity Reaction Status Date / Time No Known Allergies Allergy Verified 03/11/19 10:59 Home Medications: Home Medications Gabapentin CAP(*) [Neurontin 400 mg CAP(*)] 400 mg PO TID 12/02/19 [History Confirmed 12/02/19] PARoxetine HCl [Paxil] 60 mg PO DAILY 12/02/19 [History Confirmed 12/02/19] Prazosin 1 mg CAP [Minipress 1 mg CAP] 3 mg PO DAILY 12/02/19 [History Confirmed 12/02/19] Quetiapine Fumarate [Seroquel 300 MG] 300 mg PO DAILY 12/02/19 [History Confirmed 12/02/19] clonazePAM [Clonazepam] 1 mg PO TID PRN 12/02/19 [History Confirmed 12/02/19] PMH/Surg Hx/FS Hx/Imm Hx Endocrine/Hematology History: Denies: Hx Diabetes Cardiovascular History: Denies: Hx Pacemaker/ICD History: Reports: Other Problems/Disorders - uti's Sensory History: Denies: Hx Eye Prosthesis Opthamlomology History: Denies: Hx Legally Blind EENT History: Denies: Hx Deafness Psychiatric History: Reports: Hx Anxiety, Hx Depression Denies: Hx Eating Disorder, Hx of Violent Episodes Against Others - Surgical History Surgery Procedure, Year, and Place: X2 Infectious Disease History: No Infectious Disease History: Denies: Traveled Outside the [place] in Last 30 Days - Family History Known Family History: Positive: Hypertension, Diabetes, Other - Cancer Negative: Cardiac Disease - Social History Alcohol Use: Daily Hx Substance Use: No Substance Use Type: Reports: None Hx Tobacco Use: No Smoking Status (MU): Never Smoked Tobacco Have You Smoked in the Last Year: No Review of Systems Constitutional: Negative Eyes: Negative ENT: Negative Cardiovascular: Negative Respiratory: Negative Gastrointestinal: Negative Genitourinary: Negative Musculoskeletal: Negative Skin: Negative Positive: Syncope Psychological: Normal All Other Systems Reviewed And Are Negative: Yes Physical Exam - Summary Physical Exam Summary: No visual field loss. Truncal and fine motor ataxia. Patient has difficulty sitting up or standing. Patient wavers on nose to finger test. Somnolent, slow to respond. No nystagmus noted. Triage Information Reviewed: Yes Vital Signs On Initial Exam: Initial Vitals Temp Pulse Resp BP Pulse Ox 98.4 F 59 16 119/68 98 12/01/19 22:57 12/01/19 22:57 12/01/19 22:57 12/01/19 22:57 12/01/19 22:57 Vital Signs Reviewed: Yes Appearance: Positive: Well-Appearing Skin: Positive: Warm Head/Face: Positive: Normal Head/Face Inspection Eyes: Positive: Normal Neck: Positive: Supple Respiratory/Lung Sounds: Positive: Clear to Auscultation Cardiovascular: Positive: Normal Abdomen Description: Positive: Nontender Musculoskeletal: Positive: Normal Neurological: Negative: Facial Droop, Slurred Speech Psychiatric: Positive: Other AVPU Assessment: Alert - Quinn Coma Scale Best Eye Response: 4 - Spontaneous Best Motor Response: 6 - Obeys Commands Best Verbal Response: 5 - Oriented Coma Scale Total: 15 Procedures - Sedation Patient Received Moderate/Deep Sedation with Procedure: No Diagnostics - Vital Signs Vital Signs Temp Pulse Resp BP Pulse Ox 12/01/19 22:57 98.4 F 59 16 119/68 98 - Laboratory Result Diagrams: 12/02/19 15:42 12/02/19 15:42 Lab Statement: Any lab studies that have been ordered have been reviewed, and results considered in the medical decision making process. 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 Since syncopal episode complains of blurry vision , altered mental status, weakness, and difficulty ambulating. States she was feeling fine prior to syncopal episode. Denies history of syncopal episodes. Denies new medications, injury due to syncopal episode. Denies EtOH, recreational drug use. Denies symptoms of illness or pain. Patient has history of anxiety. Heart rate in the 50s. Vital signs otherwise within normal limits. Labs unremarkable. Toxicology screen negative. Also evaluated by attending Dr. Kinney suggested CT brain and CTA head and neck. Studies negative. Discussed patient with neurology Dr. Love who recommended admission and MRI with and without contrast when possible. Patient neurological symptoms not progressive during stay in the ED. Admitted to hospitalist. - Diagnoses Provider Diagnoses: Syncope, Blurry vision, Ataxia, Altered mental status Discharge ED - Sign-Out/Discharge Documenting (check all that apply): Patient Departure - Discharge Plan Condition: Stable Disposition: ADMITTED TO [facility] - Billing Disposition and Condition Condition: STABLE Disposition: Admitted to [facility]
[2019-12-01] MEDS ORDERED: NS 0.9% 1000 ML** 1,000 ML IV ONE (23:17)
--- OUTSIDE RECORDS SUMMARY | 2019-12-01 23:45 | XMS REPORT | Continuity of Care Document ---
:1990 Author Organization [facility] Allergies and Intolerances No Allergy Data in the System Medications RxNorm Medication Dose Route Instructions Start Date End Date Status 19741224 Clonazepam 1 MG 1 mg oral orally 3 times per Active Oral Tablet day as needed. 359334 gabapentin 400 MG 400 MG ORAL 3 TIMES A DAY FOR Active Oral Capsule BHU 624012 Hydroxyzine Pamoate 50 MG ORAL EVERY 6 HOURS Active 50 MG Oral Capsule NEEDED as needed. 52107 Paroxetine 60 mg oral orally daily Active 020520 Prazosin 1 MG Oral 3 MG ORAL AT BEDTIME (NOTE: Active Capsule DOSE REQUIRES 3 CAPSULES) 241947 quetiapine 100 MG 300 MG ORAL AT BEDTIME Active Oral Tablet Medications At Time Of Discharge RxNorm Medication Dose Route Instructions Start Date End Date Status 19741224 Clonazepam 1 MG 1 mg oral orally 3 times per Active Oral Tablet day as needed. 601303 gabapentin 400 MG 400 MG ORAL 3 TIMES A DAY FOR Active Oral Capsule BHU 586303 Hydroxyzine Pamoate 50 MG ORAL EVERY 6 HOURS Active 50 MG Oral Capsule NEEDED as needed. 56917 Paroxetine 60 mg oral orally daily Active 638452 Prazosin 1 MG Oral 3 MG ORAL AT BEDTIME (NOTE: Active Capsule DOSE REQUIRES 3 CAPSULES) 468110 quetiapine 100 MG 300 MG ORAL AT BEDTIME Active Oral Tablet Problems Code Code System Problem Name Start Date End Date Status 80934078 SNOMED-CT Posttraumatic stress disorder Active 554382470 SNOMED-CT Panic attack Active 417091757 SNOMED-CT Obsessive-compulsive disorder Active 69125800 SNOMED-CT Anxiety Active 84367154 SNOMED-CT Depressive disorder Active Procedures No data in the system Results No data in the system Social History Code Code System Social History Description Dates Observed Observation 084363879 SNOMED CT Current Smoking Unknown if ever Status smoked UNK AdministrativeGender Sex Assigned At Unknown Vital Signs No data in the system Goals Section No data in the system Health Concerns No data in the systemEncounter Diagnosis Date Code Code System Diagnosis Status F32.9 ICD10 RAJAN DEPRESS D/O SINGLE EPIS UNS Active Advance Directives PT STATES NO ADVANCE DIRECTIVES 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 Supporting Document Name Address Phone No Directive Type 10/11/2019 7:12:00 Not Specified Not Specified Not Specified None No specified PM Encounters Encounter Diagnosis Location Date RAJAN DEPRESS D/O SINGLE EPIS [facility] 10/11/2019 Family History Family history not obtained Functional Status No data in the system Immunizations Vaccine Code Code System Vaccine Name Date Status 150 CVX Influenza, injectable, quadrivalent, 10/12/2019 Completed preservative free Medical Equipment No data in the system Mental Status No data in the system Assessment and Plan Assessments No data in the systemPlan Of Treatment No data in the systemPending Tests No data in the system Hospital Discharge Instructions No data in the system Reason for Visit No data in the system
--- OUTSIDE RECORDS SUMMARY | 2019-12-01 23:45 | XMS REPORT | Summary of Care ---
:1990 Author Organization [facility] Address [address] [place] [address] Care Team Providers Name Role Phone Margarita Melendez Primary Care Provider Reason for Visit Reason Comments Check Up dooley while urinating also having trouble urinating Encounter Details Date Type Department Care Team Description 11/04/2019 Office Visit [facility] Margarita Melendez, Acute cystitis with hematuria (Primary Dx); Practice [facility] Dysuria [address] [place] [address] [place] [address] [phone] Allergies No Known Allergiesdocumented as of this encounter (statuses as of 11/04/2019) Medications Medication Sig Dispensed Refills Start Date End Date Status paroxetine (PAXIL) 20 Take 1 Tab by 60 Tab 0 07/25/2019 Active MG Oral Tab mouth DAILY. Additional information Patient taking differently: 60 mg Oral DAILY, Reported on 11/04/2019 10:53 AM clonazePAM (KLONOPIN) 0.5 MG TAKE 1 TABLET BY MOUTH 7 Tab 0 08/24/2019 Active Oral TabIndications: Anxiety EVERY DAY NEEDED FOR ANXIETY; MAXIMUM DAILY DOSE = 1 Additional information Patient taking differently: 1 mg RT TID, Reported on 11/04/2019 10:56 AM prazosin (MINIPRESS) 2 MG Take 3 mg by mouth 0 Active Oral Cap DAILY. gabapentin (NEURONTIN) Take 400 mg by 0 Active 400 MG Oral Cap mouth THREE TIMES DAILY. QUEtiapine Fumarate Take 400 mg by 0 Active (SEROQUEL PO) mouth DAILY. Bedtime nitrofurantoin Take 1 Cap by 10 Cap 0 11/04/2019 Active monohydrate macrocrystal mouth TWICE DAILY. (MACROBID) 100 MG Oral CapIndications: Acute cystitis with hematuria risperidone (RISPERDAL) 1 Take 1 mg by mouth 0 11/04/2019 Discontinued MG Oral Tab TWICE DAILY. doxepin (SINEQUAN) 25 MG Take 25 mg by 0 09/28/2019 11/04/2019 Discontinued Oral Cap mouth. documented as of this encounter (statuses as of 11/04/2019) Active Problems No known active problemsdocumented as of this encounter (statuses as of 2018) Social History Tobacco Use Types Packs/Day Years Used Date Light Tobacco Smoker Cigarettes Smokeless Tobacco: Never Used Comments: 1 pack a month Alcohol Use Drinks/Week oz/Week Comments Yes glass of wine once a month Sex Assigned at Date Recorded Not on file Job Start Date Occupation Industry Not on file Not on file Not on file Travel History Travel Start Travel End No recent travel history available. documented as of this encounter Last Filed Vital Signs Vital Sign Reading Time Taken Comments Blood Pressure 124/68 11/04/2019 10:50 AM EST Pulse 69 11/04/2019 10:50 AM EST Temperature - - Respiratory Rate - - Oxygen Saturation 97% 11/04/2019 10:50 AM EST Inhaled Oxygen Concentration - - Weight 60.3 kg (133 lb) 11/04/2019 10:50 AM EST Height 162.6 cm (5' 4") 11/04/2019 10:50 AM EST Body Mass Index 22.83 11/04/2019 10:50 AM EST documented in this encounter Patient Instructions Patient InstructionsMargarita Melendez NP - 11/04/2019 10:40 AM ESTYou have been prescribed an antibiotic - Nitrofurantoin 100 mg twice daily for 5 days. Please take all doses as prescribed. Drink plenty of fluid. You can take Pyridium over the counter for symptom relief - be aware that this can turn your urine orange. Please return if symptoms worsen or fail to improve. You have been prescribed an antibiotic for treatment of your condition. It is important to rememberthat antibiotics treat bacterial infections. In order for them to be effective - you must take ALL of the medication and take it exactly as prescribed. FINISH THE MEDICATION - even if you are feelingbetter. Antibiotics can cause stomach upset and diarrhea. You can help decrease these symptoms by also taking a probiotic while using the medication (Align, Culturelle or the like). Take with food if recommended by the pharmacist. If you are not feeling better in 3-5 days - call or return to the office. Please follow up with me in 6 months for chronic conditions. Patient Education Urinary Tract Infections in Adults The Basics Written by the doctors and editors at [facility] What is the urinary tract? The urinary tract is the group of organs in the body that handle urine (figure 1). The urinary tract includes the: Kidneys, 2 cote-shaped organs that filter the blood to make urine Bladder, a balloon-shaped organ that stores urine Ureters, 2 tubes that carry urine from the kidneys to the bladder Urethra, the tube that carries urine from the bladder to the outside of the body What are urinary tract infections? Urinary tract infections, also called "UTIs," are infections that affect either the bladder or the kidneys. Bladder infections are more common than kidney infections. Bladder infections happen when bacteria get into the urethra and travel up into the bladder. Kidney infections happen when the bacteria travel even higher, up into the kidneys. Both bladder and kidney infections are more common in women than men. What are the symptoms of a bladder infection? The symptoms include: Pain or a burning feeling when you urinate The need to urinate often The need to urinate suddenly or in a hurry Blood in the urine What are the symptoms of a kidney infection? The symptoms of a kidney infection can include the symptoms of a bladder infection, but kidney infections can also cause: Fever Back pain Nausea or vomiting How do I find out if I have a urinary tract infection? See your doctor or nurse. He or she will probably be able to tell if you have a urinary tract infection just by learning about your symptoms and doing a simple urine test. If your doctor or nurse thinks you might have a kidney infection or is unsure what you have, he or she might also do a more involved urine test to check for bacteria. How are urinary tract infections treated? Most urinary tract infections are treated with antibiotic pills. These pills work by killing the germs that cause the infection. If you have a bladder infection, you will probably need to take antibiotics for 3 to 7 days. If you have a kidney infection, you will probably need to take antibiotics for longer maybe for up to2 weeks. If you have a kidney infection, it's also possible you will need to be treated in the hospital. Your symptoms should begin to improve within a day of starting antibiotics. But you should finish all the antibiotic pills you get. Otherwise your infection might come back. If needed, you can also take a medicine to numb your bladder. This medicine eases the pain caused byurinary tract infections. It also reduces the need to urinate. What if I get bladder infections a lot? First, check with your doctor or nurse to make sure that you are really having bladder infections. The symptoms of bladder infection can be caused by other things. Your doctor or nurse will want to see if those problems might be causing your symptoms. But if you are really dealing with repeated infections, there are things you can do to keep from getting more infections. These include: Avoiding spermicides (sperm-killing creams) Spermicide is a form of control. It seems to increase the risk of bladder infections in some women , especially when used with a diaphragm. If you use spermicide and get a lot of bladder infections, you might want to try switching to a different form of control. Drinking more fluid This can help prevent bladder infections. Urinating right after sex Some doctors think this helps, because it helps flush out germs that might get into the bladder during sex. There is no proof it works, but it also cannot hurt. Vaginal estrogen If you are a woman who has already been through menopause, your doctor might suggest this. Vaginal estrogen comes in a cream or a flexible ring that you put into your vagina. It can help prevent bladder infections. Antibiotics If you get a lot of bladder infections, and the above methods have not helped, your doctor might give you antibiotics to help prevent infection. But taking antibiotics has downsides, so doctors usually suggest trying other things first. Can cranberry juice or other cranberry products prevent bladder infections? The studies suggesting that cranberry products prevent bladder infections are not very good. Other studies suggest that cranberry products do not prevent bladder infections. But if you want to try cranberry products forthis purpose, there is probably not much harm in doing so. All topics are updated as new evidence becomes available and our peer review process is complete. This topic retrieved from [employer] on: Oct 11, 2018. Topic 12808 Version 10.0 Release: 26.5.4 - C26.311 2018 [employer]. and/or its affiliates. All rights reserved. figure 1: Anatomy of the urinary tract Urine is made by the kidneys. It passes from the kidneys into the bladder through two tubes called the ureters. Then it leaves the bladder through another tube called the urethra. Graphic 75869 Version 7.0 Consumer Information Use and Disclaimer This information is not specific medical advice and does not replace information you receive from your health care provider. This is only a brief summary of general information. It does NOT include allinformation about conditions, illnesses, injuries, tests, procedures, treatments, therapies, discharge instructions or life-style choices that may apply to you. You must talk with your health care provider for complete information about your health and treatment options. This information should not beused to decide whether or not to accept your health care provider's advice, instructions or recommendations. Only your health care provider has the knowledge and training to provide advice that is right for you.The use of [employer] content is governed by the [employer] Terms of Use. 2018 [employer]. All rights reserved. Copyright 2018 [employer]. and/or its affiliates. All rights reserved. documented in this encounter Progress Notes Margarita Melendez NP - 11/04/2019 10:40 AM EST PATIENT: Scarlet Luis : 1990 DATE OF SERVICE: 11/04/2019 CHIEF COMPLAINT: Chief Complaint Patient presents with Check Up dooley while urinating also having trouble urinating Subjective HISTORY OF PRESENT ILLNESS: Scarlet Luis is a 28-y.o. female. HPI Dysuria for the last 2 weeks. Same symptoms as previous. She took the flagyl vaginal cream as prescribed previously for BV. Now no vaginal discharge or bleeding, no abd pain or discomfort, bm's ok.But frequency urination, she had a small amount of incontinence while driving a few days ago. Past Medical History: Diagnosis Date Anxiety Depression Hypoglycemia Family History Problem Relation Age of Onset Diabetes Mother Cirrhosis Father Heart Sister Seizures Sister Bipolar Disorder Brother No Known Problems Sister No Known Problems Brother Breast Cancer Maternal Grandmother 50's Cancer Paternal Grandmother throat cancer Cancer Paternal Grandfather liver cancer Current Outpatient Medications Medication Sig clonazePAM (KLONOPIN) 0.5 MG Oral Tab TAKE 1 TABLET BY MOUTH EVERY DAY NEEDED FOR ANXIETY;MAXIMUM DAILY DOSE = 1 (Patient taking differently: 1 mg THREE TIMES DAILY.) gabapentin (NEURONTIN) 400 MG Oral Cap Take 400 mg by mouth THREE TIMES DAILY. nitrofurantoin monohydrate macrocrystal (MACROBID) 100 MG Oral Cap Take 1 Cap by mouth TWICE DAILY. paroxetine (PAXIL) 20 MG Oral Tab Take 1 Tab by mouth DAILY. (Patient taking differently: Take 60 mg by mouth DAILY.) prazosin (MINIPRESS) 2 MG Oral Cap Take 3 mg by mouth DAILY. QUEtiapine Fumarate (SEROQUEL PO) Take 400 mg by mouth DAILY. Bedtime No current facility-administered medications for this visit. No Known Allergies Social History Socioeconomic History Marital status: Single Spouse name: Not on file Number of children: Not on file Years of education: Not on file Highest education level: Not on file Occupational History Not on file Social Needs Financial resource strain: Not on file Food insecurity Worry: Not on file Inability: Not on file Transportation needs Medical: Not on file Non-medical: Not on file Tobacco Use Smoking status: Light Tobacco Smoker Types: Cigarettes Smokeless tobacco: Never Used Tobacco comment: 1 pack a month Substance and Sexual Activity Alcohol use: Yes Comment: glass of wine once a month Drug use: No Sexual activity: Yes Partners: Male control/protection: I.U.D. Comment: allison for 1 year in 2018 Lifestyle Physical activity Days per week: Not on file Minutes per session: Not on file Stress: Not on file Relationships Social connections Talks on phone: Not on file Gets together: Not on file Attends methodist service: Not on file Active member of club or organization: Not on file Attends meetings of clubs or organizations: Not on file Relationship status: Not on file Intimate partner violence Fear of current or ex partner: Not on file Emotionally abused: Not on file Physically abused: Not on file Forced sexual activity: Not on file Other Topics Concern Back Care Not Asked Bike Helmet Not Asked Blood Transfusions Not Asked Caffeine Concern Not Asked Exercise Not Asked Hobby Hazards Not Asked International Travel No Service Not Asked Occupational Exposure Not Asked Seat Belt Yes Self-Exams Not Asked Sleep Concern Not Asked Special Diet Not Asked Stress Concern Not Asked Weight Concern Not Asked Social History Narrative 3 kids 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 Respiratory: Negative for shortness of breath. Cardiovascular: Negative for chest pain. Gastrointestinal: Negative for abdominal pain, constipation, diarrhea, nausea and vomiting. Genitourinary: Positive for dysuria, frequency and urgency. Negative for flank pain and hematuria. Musculoskeletal: Negative for back pain, joint pain and myalgias. Objective PHYSICAL EXAM: VITALS: BP 124/68 (BP Location: Left arm, Patient Position: Sitting) | Pulse 69 | Ht 5' 4" (1.626m) | Wt 133 lb (60.3 kg) | SpO2 97% | BMI 22.83 kg/m Body mass index is 22.83 kg/m. Physical Exam Vitals signs and nursing note reviewed. Constitutional: Appearance: Normal appearance. She is not ill-appearing. Cardiovascular: Rate and Rhythm: Normal rate and regular rhythm. Heart sounds: Normal heart sounds. No murmur. No friction rub. No gallop. Pulmonary: Effort: Pulmonary effort is normal. No respiratory distress. Breath sounds: Normal breath sounds. Abdominal: General: Bowel sounds are normal. Palpations: Abdomen is soft. Tenderness: There is no abdominal tenderness. There is no right CVA tenderness or left CVA tenderness. Neurological: Mental Status: She is alert. Results for orders placed or performed in visit on 11/04/19 URINE DIP MANUAL (AMB POCT) Result Value Ref Range URINE GLUCOSE (POCT) Negative Negative mg/dl URINE BILIRUBIN (POCT) Negative Negative Urine Ketones (POCT) Negative Negative URINE SPECIFIC GRAVITY (POCT) 1.025 1.005 - 1.030 URINE BLOOD (POCT) Large (A) Negative URINE PH (POCT) 6.0 5.0 - 8.0 URINE PROTEIN (POCT) Trace (A) Negative mg/dl URINE UROBILINOGEN (POCT) 0.2 0.2 - 1.0 mg/dl URINE NITRITES (POCT) Negative Negative URINE LEUKOCYTES (POCT) Large (A) Negative Cells/uL ASSESSMENT / IMPRESSION: ICD-9-CM ICD-10-CM 1. Acute cystitis with hematuria 595.0 N30.01 nitrofurantoin monohydrate macrocrystal (MACROBID) 100MG Oral Cap 2. Dysuria 788.1 R30.0 URINE DIP MANUAL (AMB POCT) URINE CULTURE (C&S) URINE CULTURE (C&S) Plan 1. Dysuria - URINE DIP MANUAL (AMB POCT) - URINE CULTURE (C&S); Future - URINE CULTURE (C&S) 2. Acute cystitis with hematuria Urine dip +, treat with nitrofurantoin. Interactions checked for all medications through [facility], no interactions with nitrofurantoin. But she will stop medication and call if she has any problems. - nitrofurantoin monohydrate macrocrystal (MACROBID) 100 MG Oral Cap; Take 1 Cap by mouth TWICE DAILY. Dispense: 10 Cap; Refill: 0 Author: Margarita Melendez NP 11/04/2019 17:05 documented in this encounter Plan of Treatment Name Type Priority Associated Diagnoses Date/Time URINE CULTURE (C&S) Lab Routine Dysuria 11/04/2019 11:06 AM EST Name Type Priority Associated Diagnoses Order Schedule URINE CULTURE (C&S) Lab Routine Dysuria 1 Occurrences starting 11/04/2019 until 05/02/2020 Health Maintenance Due Date Last Done Comments PNEUMOCOCCAL 0-64 YRS (1 of 1 - 1998 PPSV23) DTaP/Tdap/Td Vaccines (1 - Tdap) 2003 HPV IMMUNIZATION SERIES (1 - 2003 Female 2-dose series) INFLUENZA VACCINE (#1) 2019 PAP SMEAR 07/17/2020 Postponed from 2013 (Patient refused) DEPRESSION SCREENING 12/10/2021 Postponed from 2004 (Other) HEPATITIS A IMMUNIZATION SERIES Aged Out No longer eligible based on patient's age to complete this topic MENINGOCOCCAL VACCINE IMM Aged Out No longer eligible based on patient's age to complete this topic documented as of this encounter Goals Goal Patient Goal Associated Recent Patient-Stated? Author Type Problems Progress Depression Depression No Alf Tyler screen (PHQ-9) J, DO total score < 5 Note: This is an individualized treatment (depression) goal for Scarlet Luis: Displayed above is your goal for a depression screening (PHQ-9) score that would indicate good control of your depression. Keep a regular sleep schedule Lifestyle No Alf Tyler J, DO Note: This is an individualized lifestyle goal for Scarlet Luis: Please maintain a regular sleep schedule. This may help with some symptoms of depression. Take all prescribed medications as directed Self-management No Alf Tyler, DO Note: This is an individualized self-management goal for Scarlet Luis: Please take all prescribed medications as directed. 1. Do not skip doses. If you cannot afford your medications, talk with your doctor. 2. Use a pill reminder system such as a pill box if needed. Your pharmacist can help you with this. 3. Contact your Pharmacy 5 days before your medication runs out. If you cannot take your medications for any reasons, talk with your doctor. 4. Please bring all of your medication bottles and inhalers (or a list of all your medications/inhalers) with you to every visit. Potential barriers to meeting all of your care plan goals will continue to be addressed on an ongoing basis. documented as of this encounter Procedures Procedure Name Priority Date/Time Associated Diagnosis Comments URINE DIP MANUAL Routine 11/04/2019 11:06 AM Dysuria Results for this (AMB POCT) EST procedure are in the results section. documented in this encounter Results URINE DIP MANUAL (AMB POCT) (11/04/2019 11:06 AM EST) URINE GLUCOSE (POCT) Negative Negative mg/dl [facility] POCT URINE BILIRUBIN Negative Negative [facility] (POCT) POCT Urine Ketones (POCT) Negative Negative [facility] POCT URINE SPECIFIC 1.025 1.005 - 1.030 [facility] GRAVITY (POCT) POCT URINE BLOOD (POCT) Large (A) Negative [facility] POCT URINE PH (POCT) 6.0 5.0 - 8.0 [facility] POCT URINE PROTEIN (POCT) Trace (A) Negative mg/dl [facility] POCT URINE UROBILINOGEN 0.2 0.2 - 1.0 mg/dl [facility] (POCT) POCT URINE NITRITES (POCT) Negative Negative [facility] POCT URINE LEUKOCYTES Large (A) Negative Cells/uL [facility] (POCT) POCT Specimen Urine - Urine specimen (specimen) Performing Organization Address City/State/Zipcode Phone Number [facility] [address] [place] [address] documented in this encounter Visit Diagnoses Diagnosis Dysuria Acute cystitis with hematuria Acute cystitis documented in this encounter Insurance Payer Benefit Plan / Subscriber ID Effective Dates Phone Address Type Group [place] xxxxxxxx 2019-Present Medicaid [place] documented as of this encounter
--- OUTSIDE RECORDS SUMMARY | 2019-12-01 23:45 | XMS REPORT | Continuity of Care Document ---
:1990 Author Organization [facility] Allergies and Intolerances No Allergy Data in the System Medications RxNorm Medication Dose Route Instructions Start End Status Date Date 19741224 Clonazepam 1 MG 1 mg oral orally 3 times Active Oral Tablet per day as needed. 449724 gabapentin 400 MG 400 MG ORAL 3 TIMES A DAY Active Oral Capsule FOR BHU 933447 Hydroxyzine 50 MG ORAL EVERY 6 HOURS Active Pamoate 50 MG NEEDED as Oral Capsule needed. 27528 Paroxetine 60 mg oral orally daily Active 989681 Prazosin 1 MG 3 MG ORAL AT BEDTIME Active Oral Capsule (NOTE: DOSE REQUIRES 3 CAPSULES) 660922 quetiapine 100 MG 300 MG ORAL AT BEDTIME Active Oral Tablet 3638 Doxepin 25 milligram oral orally every day Completed mg at bedtime 8629 Prazosin 2 milligram oral orally every day Completed mg at bedtime 03533 Risperidone 0.5 milligram oral orally every day Completed mg at bedtime 765772 Risperidone 1 MG 1 mg oral orally 2 times Completed Oral Tablet per day 310339 Trazodone 50 mg oral orally daily Completed Hydrochloride 50 MG Oral Tablet Medications At Time Of Discharge RxNorm Medication Dose Route Instructions Start Date End Date Status 19741224 Clonazepam 1 MG 1 mg oral orally 3 times per Active Oral Tablet day as needed. 172704 gabapentin 400 MG 400 MG ORAL 3 TIMES A DAY FOR Active Oral Capsule U 818763 Hydroxyzine Pamoate 50 MG ORAL EVERY 6 HOURS Active 50 MG Oral Capsule NEEDED as needed. 71473 Paroxetine 60 mg oral orally daily Active 871767 Prazosin 1 MG Oral 3 MG ORAL AT BEDTIME (NOTE: Active Capsule DOSE REQUIRES 3 CAPSULES) 290618 quetiapine 100 MG 300 MG ORAL AT BEDTIME Active Oral Tablet Problems Code Code System Problem Name Start Date End Date Status 89377609 SNOMED-CT Posttraumatic stress disorder Active 650463732 SNOMED-CT Panic attack Active 781581634 SNOMED-CT Obsessive-compulsive disorder Active 64246439 SNOMED-CT Anxiety Active 60926417 SNOMED-CT Depressive disorder Active Procedures No data in the system Results Laboratory Results Order: Point of Care Glucose ACCUCHECK Specimen Source: Blood Body Site: Legend: (G,H) = High, (GG,HH,CH,#H) = Above High Threshold, (#,L) = Low, (##,CL,#L,LL) = Below Low Threshold, (C,CC,CA,#A,A ) = Abnormal LOINC Test Result Flag Range Units Date 1GLUCOSE BedSide 84 70-100 mg/dL 10/15/2019 08:04 Test Comment: [id number] ANI AGUAYO Test Comment: 1Cleaned Meter Test Comment: 1RN Notified Performing Lab Footnotes:[facility] - [id number] - [address] [place] [address] BILL KIRKPATRICKOMD1 Order: Point of Care Glucose ACCUCHECK Specimen Source: Blood Body Site: Legend: (G,H) = High, (GG,HH,CH,#H) = Above High Threshold, (#,L) = Low, ( ##,CL,#L,LL) = Below Low Threshold, (C,CC,CA,#A,A) = Abnormal LOINC Test Result Flag Range Units Date 1GLUCOSE BedSide 120 H 70-100 mg/dL 10/14/2019 08:45 Test Comment: [id number] FAIZAN ANTONIO Test Comment: 1Cleaned Meter Test Comment: 1RN Notified Performing Lab Footnotes:[facility] - [id number] - [address] [place] [address] BILL KIRKPATRICKOMD1 Order: Point of Care Glucose ACCUCHECK Specimen Source: Blood Body Site: Legend: (G,H) = High, (GG,HH,CH,#H) = Above High Threshold, (#,L) = Low, ( ##,CL,#L,LL) = Below Low Threshold, (C,CC,CA,#A,A) = Abnormal LOINC Test Result Flag Range Units Date 1GLUCOSE BedSide 143 H 70-100 mg/dL 10/13/2019 12:33 Test Comment: [id number] HARISH TOBAR Test Comment: 1RN Notified Performing Lab Footnotes:[facility] - [id number] - [address] [place] [address] BILL CHUNGAFTABOMD1 Order: TCA -TRICYCLIC ANTIDEPRESSANT UR Specimen Source: Body Site: Legend: (G,H) = High, (GG,HH,CH,#H) = Above High Threshold, (#,L) = Low, (##,CL, #L,LL) = Below Low Threshold, (C,CC,CA,#A,A) = Abnormal LOINC Test Result Flag Range Units Date 1Tricyclics Ur Scn-mCnc NEGATIVE NEGATIVE 10/11/2019 17:39 1A Positive Drug Screen will not be Confirmed unless requested by the Physician. Please contact the Lab ([phone]) within 5 days for Confirmation Testing. Performing Lab Footnotes:[facility] - [id number] - [address] [place] [address] BILL KIRKPATRICKOMD1 Order: URINALYSIS ROUTINE Specimen Source: Body Site: Legend: (G,H) = High, (GG,HH,CH,#H) = Above High Threshold, (#,L) = Low, (##,CL,#L,LL) = Below Low Threshold, (C,CC,CA,#A,A) = Abnormal LOINC Test Result Flag Range Units Date 5778-6 1Color Ur YELLOW 10/11/2019 17:39 85021-6 1Turbidity Ur Ql CLEAR CLEAR 10/11/2019 17:39 5811-5 1Sp Gr Ur Strip 1.025 1.000-1.030 10/11/2019 17:39 5803-2 1pH Ur Strip 6.0 5.0-8.0 10/11/2019 17:39 83218-1 1WBC # Ur Strip NEGATIVE NEGATIVE 10/11/2019 17:39 5802-4 1Nitrite Ur Ql Strip NEGATIVE NEGATIVE 10/11/2019 17:39 5804-0 1Prot Ur Strip-mCnc NEGATIVE NEGATIVE mg/dL 10/11/2019 17:39 5792-7 1Glucose Ur Strip-mCnc NORMAL NORMAL mg/dL 10/11/2019 17:39 5797-6 1Ketones Ur Strip-mCnc NEGATIVE NEGATIVE mg/dL 10/11/2019 17:39 89309-0 1Urobilinogen Ur NORMAL NORMAL mg/dL 10/11/2019 17:39 Strip-mCnc 89455-4 1Bilirub Ur Strip-mCnc NEGATIVE NEGATIVE mg/dL 10/11/2019 17:39 5794-3 1Hgb Ur Ql Strip 3+ ! NEGATIVE 10/11/2019 17:39 Performing Lab Footnotes:[facility] - [id number] - [address] [place] [address] BILL JOE Order: URINE MICROSCOPIC Specimen Source: Body Site: Legend: (G,H) = High, (GG,HH,CH,#H) = Above High Threshold, (#,L) = Low, (##,CL,#L,LL) = Below Low Threshold, (C,CC,CA,#A,A) = Abnormal LOINC Test Result Flag Range Units Date 1URINE MICROSCOPIC EXAM 5821-4 1WBC #/area UrnS HPF 0-2 0-2 /HPF 10/11/2019 17:39 5808-1 1RBC # UrnS HPF 5-10 ! NONE SEEN /HPF 10/11/2019 17:39 Interpretive Astrid: 1The [employer] has defined Microscopic Hematuria as 3 or more RBC per high powered field from a single positive urinalysis with microscopy. 80853-8 1Bacteria UrnS Ql Micro NONE SEEN NONE SEEN /HPF 10/11/2019 17: 39 5787-7 1Epi Cells #/area UrnS HPF RARE ! NONE SEEN /HPF 10/11/2019 17:39 8247-9 1Mucous Threads UrnS Ql Micro SMALL ! NONE SEEN /HPF 10/11/2019 17:39 Performing Lab Footnotes:[facility] - [id number] - [address] [place] [address] BILL Davis SHELDONCIOMD1 Order: UTOX URINE DRUG SCREEN Specimen Source: Body Site: Legend: (G,H ) = High, (GG,HH,CH,#H) = Above High Threshold, (#,L) = Low, (##,CL,#L,LL) = Below Low Threshold, (C,CC,CA,#A,A) = Abnormal LOINC Test Result Flag Range Units Date 71085-3 1Amphet Ur Ql Scn NEGATIVE NEGATIVE 10/11/2019 17:39 3374-6 1Barbiturate Scn Present Ur NEGATIVE NEGATIVE 10/11/2019 17:39 51601-8 1Benzodiaz metab Ur Ql Scn POSITIVE ! NEGATIVE 10/11/2019 17:39 3879-4 1Opiates Ur Ql NEGATIVE NEGATIVE 10/11/2019 17:39 3397-7 1Cocaine Ur Ql NEGATIVE NEGATIVE 10/11/2019 17:39 49617-9 111OH-THC Ur Ql Scn NEGATIVE NEGATIVE 10/11/2019 17:39 14238-3 1PCP Ur Scn-mCnc NEGATIVE NEGATIVE 10/11/2019 17:39 51152-5 1Methadone Ur Ql Scn NEGATIVE NEGATIVE 10/11/2019 17:39 1A Positive Drug Screen will not be Confirmed unless requested by the Physician. Please contact the Lab ([phone]) within 5 days for Confirmation Testing. Performing Lab Footnotes:[facility] - [id number] [place] [address] BILL KIRKPATRICKOMD1 Order: ACETAMINOPHEN Specimen Source: Body Site: Legend: (G,H) = High, (GG,HH,CH,#H) = Above High Threshold, (#,L) = Low, (##,CL,#L,LL) = Below Low Threshold, (C,CC,CA,#A,A) = Abnormal LOINC Test Result Flag Range Units Date 11138-7 1APAP Bld-mCnc <1 L 10-30 ug/mL 10/11/2019 16:42 Performing Lab Footnotes:[facility] - [id number] - [address] [place] [address] BILL KIRKPATRICKOMD1 Order: ALCOHOL BLOOD MEDICAL Specimen Source: Body Site: Legend: (G,H ) = High, (GG,HH,CH,#H) = Above High Threshold, (#,L) = Low, (##,CL,#L,LL) = Below Low Threshold, (C,CC,CA,#A,A) = Abnormal LOINC Test Result Flag Range Units Date 5640-8 1Ethanol Bld-mCnc <0.010 gm% 10/11/2019 16:42 Performing Lab Footnotes:[facility] - [id number] - [address] [place] [address] BILL CHUNGQUIQUED1 Order: CBC DIFF Specimen Source: Body Site: Legend: (G,H) = High, (GG, HH,CH,#H) = Above High Threshold, (#,L) = Low, (##,CL,#L,LL) = Below Low Threshold, (C,CC,CA,#A,A) = Abnormal LOINC Test Result Flag Range Units Date 6690-2 1WBC # Bld Auto 7.5 4.8-10.8 K/uL 10/11/2019 16:42 22772-2 1RBC # Bld 4.70 4.20-5.40 M/uL 10/11/2019 16:42 718-7 1Hgb Bld-mCnc 14.2 12.0-16.0 gm/dL 10/11/2019 16:42 4544-3 1Hct VFr Bld Auto 40.1 36.0-48.0 % 10/11/2019 16:42 787-2 1MCV RBC Auto 85.3 80.0-100.0 fL 10/11/2019 16:42 33778-2 1MCHC RBC-mCnc 35.5 30.0-36.5 % 10/11/2019 16:42 93468-8 1MCH RBC Qn 30.3 27.0-34.0 pg 10/11/2019 16:42 69908-6 1RDW RBC 11.3 11.0-15.0 % 10/11/2019 16:42 777-3 1Platelet # Bld Auto 269 130-450 K/uL 10/11/2019 16:42 18123-9 1PMV Bld Auto 7.1 6.0-12.0 fL 10/11/2019 16:42 751-8 1Neutrophils # Bld Auto 69 37-80 % 10/11/2019 16:42 36038-6 1Lymphocytes NFr Bld 20 10-50 % 10/11/2019 16:42 5905-5 1Monocytes NFr Bld Auto 9 0-12 % 10/11/2019 16:42 68789-1 1Eosinophil # Bld 2 <=8 % 10/11/2019 16:42 704-7 1Basophils # Bld Auto 0 <=3 % 10/11/2019 16:42 04490-6 1Neutrophils # Bld 5.2 1.8-8.6 K/uL 10/11/2019 16:42 731-0 1Lymphocytes # Bld Auto 1.5 0.5-5.0 K/uL 10/11/2019 16:42 742-7 1Monocytes # Bld Auto 0.6 0.0-1.3 K/uL 10/11/2019 16:42 16866-1 1Eosinophil # Bld 0.2 0.0-0.9 K/uL 10/11/2019 16:42 704-7 1Basophils # Bld Auto 0.0 0.0-0.3 K/ul 10/11/2019 16:42 Performing Lab Footnotes:[facility] - [id number] - [address] [place] [address] BILL JOE Order: COMPREHENSIVE PANEL Specimen Source: Body Site: Legend: (G,H) = High, (GG,HH,CH,#H) = Above High Threshold, (#,L) = Low, (##,CL,#L,LL) = Below Low Threshold, (C,CC,CA,#A,A) = Abnormal LOINC Test Result Flag Range Units Date 2951-2 1Sodium SerPl-sCnc 141 136-145 mmol/L 10/11/2019 16:42 2823-3 1Potassium SerPl-sCnc 3.3 L 3.5-5.2 mmol/L 10/11/2019 16:42 2075-0 1Chloride SerPl-sCnc 107 100-108 mmol/L 10/11/2019 16:42 8-9 1CO2 SerPl-sCnc 26 21-32 mmol/L 10/11/2019 16:42 2345-7 1Glucose SerPl-mCnc 99 70-100 mg/dL 10/11/2019 16:42 3094-0 1BUN SerPl-mCnc 9 7-21 mg/dL 10/11/2019 16:42 2160-0 1Creat SerPl-mCnc 0.8 0.6-1.3 mg/dL 10/11/2019 16:42 Interpretive Astrid: 1Normal Kidney Function or Mild Disease - GFR >OR= 60 Chronic Kidney Disease - GFR 15-59 Renal Failure - GFR < 15 GFR not calculated on patients under 18 years of age. Calculated (estimated) GFR is based on the MDRD Study equation, which assumes a steady state for creatinine. Estimated GFR may not be appropriate for medication dosing. 73271-2 1Ca-I SerPl-mCnc 9.9 8.5-10.8 mg/dL 10/11/2019 16:42 22444-4 1GFR/BSA.pred SerPl-ArVRat >60 10/11/2019 16:42 29914-4 1Bilirub Bld-mCnc 0.7 0.0-1.2 mg/dL 10/11/2019 16:42 2885-2 1Prot SerPl-mCnc 7.5 6.4-8.2 gm/dL 10/11/2019 16:42 1751-7 1Albumin SerPl-mCnc 4.5 3.4-4.8 gm/dL 10/11/2019 16:42 6768-6 1ALP SerPl-cCnc 97 40-150 U/L 10/11/2019 16:42 1742-6 1ALT SerPl-cCnc 73 H 0-55 U/L 10/11/2019 16:42 1920-8 1AST SerPl-cCnc 46 H 5-37 U/L 10/11/2019 16:42 Performing Lab Footnotes:[facility] - [id number] - [address] [place] [address] BILL Davis TATYANA Order: LIPID PANEL Specimen Source: Body Site: Legend: (G,H) = High, ( GG,HH,CH,#H) = Above High Threshold, (#,L) = Low, (##,CL,#L,LL) = Below Low Threshold, (C,CC,CA,#A,A) = Abnormal LOINC Test Result Flag Range Units Date 2093-01 1Cholest SerPl-mCnc 170 120-200 mg/dL 10/11/2019 16:42 2571-8 1Trigl SerPl-mCnc 102 0-149 mg/dL 10/11/2019 16:42 5-9 1HDLc SerPl-mCnc 58 40-60 mg/dL 10/11/2019 16:42 9830-1 1Cholest/HDLc SerPl-mRto 2.9 <=4.4 10/11/2019 16:42 Interpretive Astrid: 1Cholesterol/HDL Ratio Interpretation Risk : 1/2 Avg Avg 2x Avg 3x Avg Male : 3.43 4.97 9.50 23.99 Female : 3.27 4.44 7.05 11.04 29023-8 1LDLc SerPl Direct Assay-mCnc 104 H 0-99 mg/dL 10/11/2019 16:42 77859-0 1VLDLc SerPl Calc-mCnc 20 10/11/2019 16:42 Performing Lab Footnotes:[facility] - [id number] - [address] [place] [address] BILL KIRKPATRICKOMMarco A Order: TEST - SERUM Specimen Source: Body Site: Legend: (G,H ) = High, (GG,HH,CH,#H) = Above High Threshold, (#,L) = Low, (##,CL,#L,LL) = Below Low Threshold, (C,CC,CA,#A,A) = Abnormal LOINC Test Result Flag Range Units Date 2118-06 1HCG Preg SerPl Ql NEGATIVE 10/11/2019 16:42 1Detection Level: >=10 mIU/mL Performing Lab Footnotes:[facility] - [id number] - [address] [place] [address] BILL KIRKPATRICKOMMarco A Order: SALICYLATES Specimen Source: Body Site: Legend: (G,H) = High, ( GG,HH,CH,#H) = Above High Threshold, (#,L) = Low, (##,CL,#L,LL) = Below Low Threshold, (C,CC,CA,#A,A) = Abnormal LOINC Test Result Flag Range Units Date 4024-6 1Salicylates SerPl-mCnc <1.0 L 2.8-29.0 mg/dL 10/11/2019 16:42 Performing Lab Footnotes:[facility] - [id number] - [address] [place] [address] BILL JOE Order: T4 - FREE Specimen Source: Body Site: Legend: (G,H) = High, (GG, HH,CH,#H) = Above High Threshold, (#,L) = Low, (##,CL,#L,LL) = Below Low Threshold, (C,CC,CA,#A,A) = Abnormal LOINC Test Result Flag Range Units Date 3024-7 1T4 Free SerPl-mCnc 0.82 0.77-1.60 ng/dL 10/11/2019 16:42 Performing Lab Footnotes:[facility] - [id number] - [address] [place] [address] BILL JOE Order: TSH Specimen Source: Body Site: Legend: (G,H) = High, (GG,HH,CH, #H) = Above High Threshold, (#,L) = Low, (##,CL,#L,LL) = Below Low Threshold, (C ,CC,CA,#A,A) = Abnormal LOINC Test Result Flag Range Units Date 3016-3 1TSH SerPl-aCnc 4.87 H 0.34-4.82 uIU/mL 10/11/2019 16:42 Performing Lab Footnotes:[facility] - [id number] - [address] [place] [address] BILL KIRKPATRICKOMD1 Social History Code Code System Social History Description Dates Observed Observation 899231123955895 SNOMED CT Current Smoking Light tobacco Status smoker UNK AdministrativeGender Sex Assigned At Unknown Vital Signs Code Code System Vitals Value Date 8310-5 INC Body Temperature 97.9 [degF] 10/24/2019 8865-8 LOINC Pulse Rate 68 {beats}/min 10/24/2019 9279-1 LOINC Respiratory Rate 18 /min 10/24/2019 70553-1 INC O2% BldC Oximetry 96 % 10/24/2019 8480-6 LOINC BP Systolic 108 mm[Hg] 10/24/2019 8462-4 LOINC BP Diastolic 58 mm[Hg] 10/24/2019 34093-6 LOINC Weight 61.5 kg 10/11/2019 8302-2 LOINC Height 64 [in_i] 10/11/2019 Goals Section No data in the system Health Concerns No data in the systemEncounter Diagnosis Date Code Code System Diagnosis Status 74088984 SNOMED-CT Bipolar disorder Active Advance Directives PT STATES NO ADVANCE DIRECTIVES Directive Type Effective Date [employer] Notes Supporting Document Name Address Phone No Directive Type 10/11/2019 7:12:00 Not Specified Not Specified Not Specified None No specified PM Encounters Encounter Diagnosis Location Date Bipolar disorder [facility] 10/11/2019 Family History Family history not obtained Functional Status Code Functional Condition Code System Date Status Independent adls SNOMED CT 10/11/2019 Active Appears well nourished/hydrated SNOMED CT 10/11/2019 Active Self care SNOMED CT 10/24/2019 Active N/a SNOMED CT 10/11/[address] 10/18/[address] 10/23/2019 Active Needs further teaching SNOMED CT 10/24/[address] understanding SNOMED CT 10/24/2019 Active 4 - manage pain and encourage activity as SNOMED CT 10/24/2019 Active tolerated Partial bath SNOMED CT 10/14/2019 Active 3 - encourage active rom SNOMED CT 10/23/2019 Active 3 - include family in interventions SNOMED CT 10/23/2019 Active 3 - wedge foam cushion if oob SNOMED CT 10/19/2019 Active 3 - encourage and assist as needed in SNOMED CT 10/19/2019 Active repositioning 1 or 2 - rom to unaffected limbs q shift and prn SNOMED CT 10/19/2019 Active 1 or 2 - elevate heels in bed with pillow or heel SNOMED CT 10/19/2019 Active boot Immunizations Vaccine Code Code System Vaccine Name Date Status 150 CVX Influenza, injectable, quadrivalent, 10/12/2019 Completed preservative free Medical Equipment No data in the system Mental Status Code Cognitive Condition Code System Date Status Perrl SNOMED CT 10/11/2019 Active Oriented x [address] 10/11/2019 Active Moves all extremities SNOMED CT 10/11/2019 Active Nml gait SNOMED CT 10/11/2019 Active Flight of ideas SNOMED CT 10/11/2019 Active In[address] speech SNOMED CT 10/11/2019 Active Lack of eye contact SNOMED CT 10/11/[address] loud SNOMED CT 10/11/2019 Active Moderate distress SNOMED CT 10/11/2019 Active Neat, clean SNOMED CT 10/11/[address] 10/11/[address] 10/11/[address] 10/18/2019 Active Over - productive SNOMED CT 10/11/[address] problems SN[address] 10/11/[address] 10/18/[address] 10/11/[address] 10/18/[address] 10/24/[address] 10/23/[address] 10/19/2019 Active [address]1243101 Orientated SNOM[address] CT 10/23/2019 Active 950505771 Oriented to time SNOMED CT 10/23/2019 Active 484955993 Oriented to time (finding) SNOMED CT 10/23/[address] [facility] 10/23/[address] (finding) [facility] 10/23/2019 Active 198625820 Oriented to person [facility] 10/23/2019 Active Assessment and Plan Assessments No data in the systemPlan Of Treatment No data in the systemPending Tests No data in the system Hospital Discharge Instructions Discharge InstructionsDischarge DiagnosisBipolar DisorderDietRegular DietActivityNo RestrictionsDischarge DestinationDischarge to HomeSpecial InstructionsContinue medications as directedContinue treatment planNo Alcohol, No Drugskeep all appointments, go to ER if feeling suiciPatients HOME MEDICATIONS returned to patient upon dischargeYesSocial Work DischargeMental Health Follow [facility] 10/27/19 @ 1:00 pm with AmyOtherOther Information:In case of emergency or if you are experiencing an increase in your symptoms, call 911, contact the Hotline at in [facility] or [phone] in [facility].My Personal Safety Plan1. These are my warning signs that a crisis may be developing:No data(thoughts, images, mood, situation, behavior)not sleeping, not eating,isolating myself, running away2. I can do the following activities to take my mind off of my problemsNo dataor that can calm and comfort Carmine data(relaxation techniques, physical activity, coping strategies):working out, biting my nails, running3. Ways I can make my environment safe:follow my safety laws4. Remind myself of my reasons for livingmy kids5. Call a friend or family member:No dataName:Mary ZamoraPhone Number:[phone]-up person:Js AlvaradoPhone Number:[phone]. Call a provider:No dataTherapist:AmyPhone Number:[phone] :Dr Edmonds Number:[phone]. Call Crisis line: [phone] ([phone]) or [phone] ([phone])No data8. Go somewhere safe:home9. Go to the nearest emergency room at the nearest hospital.No data10. When I feel that I cannot get to the hospital safely,call 911 and request transportation to the hospital. Reason for Visit Reason for Visit MAJOR DEPRESSIVE DISORDER
--- OUTSIDE RECORDS SUMMARY | 2019-12-01 23:46 | XMS REPORT | Summary of Care ---
:1990 Author Organization [facility] Address [address] [facility] [place] [address] Care Team Providers Name Role Phone Alf Tyler Primary Care Provider Reason for Visit Reason Comments Anxiety Encounter Details Date Type Department Care Team Description 10/10/2019 Office Visit Jolene Vega, Anxiety and depression (Primary Dx); Practice HISTOLOGIC AIDE Suicidal ideations [address] [facility] [address] [place] [address] [place] [address] [phone] Allergies No Known Allergiesdocumented as of this encounter (statuses as of 10/10/2019) Medications Medication Sig Dispensed Refills Start Date End Date Status paroxetine (PAXIL) 20 Take 1 Tab by 60 Tab 0 07/25/2019 Active MG Oral Tab mouth DAILY. Additional information Patient taking differently: 30 mg Oral DAILY, Reported on 09/09/2019 11:42 AM clonazePAM (KLONOPIN) 0.5 MG TAKE 1 TABLET BY MOUTH 7 Tab 0 08/24/2019 Active Oral TabIndications: Anxiety EVERY DAY NEEDED FOR ANXIETY; MAXIMUM DAILY DOSE = 1 Additional information Patient taking differently: 1 mg DAILY, Reported on 09/09/2019 11:43 AM prazosin (MINIPRESS) 2 Take 2 mg by mouth 0 Active MG Oral Cap DAILY. risperidone (RISPERDAL) Take 1 mg by mouth 0 Active 1 MG Oral Tab TWICE DAILY. doxepin (SINEQUAN) 25 Take 25 mg by mouth. 0 Active MG Oral Cap 9 nitrofurantoin Take 1 Cap by mouth 14 Cap 0 10/10/20 Discontinued monohydrate TWICE DAILY. 9 19 macrocrystal (MACROBID) 100 MG Oral CapIndications: Urinary tract infection with hematuria, site unspecified fluconazole (DIFLUCAN) Take 1 Tab by mouth 1 Tab 0 10/10/20 Discontinued 150 MG Oral Tab DAILY. 9 19 metroNIDAZOLE (FLAGYL) Take 1 Tab by mouth 14 Tab 0 10/10/20 Discontinued 500 MG Oral TWICE DAILY. 9 19 TabIndications: Bacterial vaginosis metroNIDAZOLE One applicatorful 5 Appl 0 10/10/20 Discontinued (METROGEL) 0.75 % intravaginally once 9 19 Vaginal GelIndications: daily for 5 days Bacterial vaginosis doxepin (SINEQUAN) 25 Take 25 mg by mouth 0 10/10/20 Discontinued MG Oral Cap EVERY BEDTIME. 19 documented as of this encounter (statuses as of 10/10/2019) Active Problems No known active problemsdocumented as of this encounter (statuses as of 2018) Social History Tobacco Use Types Packs/Day Years Used Date Light Tobacco Smoker Cigarettes Smokeless Tobacco: Never Used Tobacco Cessation: Ready to Quit: No; Counseling Given: Yes Comments: 1 pack a month Alcohol Use [...] Sign Reading Time Taken Comments Blood Pressure 118/60 10/10/2019 2:34 PM EST Pulse 97 10/10/2019 2:34 PM EST Temperature - - Respiratory Rate - - Oxygen Saturation 97% 10/10/2019 2:34 PM EST Inhaled Oxygen Concentration - - Weight - - Height 162.6 cm (5' 4") 10/10/2019 2:34 PM EST Body Mass Index - - documented in this encounter Patient Instructions Patient InstructionsJolene Carrillo FNP - 10/10/2019 1:40 PM ESTFollow up with psychiatrist and counselor documented in this encounter Progress Notes Jolene Carrillo FNP - 10/10/2019 1:40 PM EST PATIENT: Scarlet Luis : 1990 DATE OF SERVICE: 10/10/2019 CHIEF COMPLAINT: Chief Complaint Patient presents with Anxiety Subjective HISTORY OF PRESENT ILLNESS: Scarlet Luis is a 28-y.o. female. [facility] - sees Psych. Recently hospitalized for adverse reaction to trazodone. Past Medical History: Diagnosis Date Anxiety Depression [...] = 1 (Patient taking differently: 1 mg DAILY.) doxepin (SINEQUAN) 25 MG Oral Cap Take 25 mg by mouth. paroxetine (PAXIL) 20 MG Oral Tab Take 1 Tab by mouth DAILY. (Patient taking differently: Take 30 mg by mouth DAILY.) prazosin (MINIPRESS) 2 MG Oral Cap Take 2 mg by mouth DAILY. risperidone (RISPERDAL) 1 MG Oral Tab Take 1 mg by mouth TWICE DAILY. No current facility-administered medications for this visit. No Known Allergies Social History Socioeconomic History Marital status: Single Spouse name: Not on file Number of children: Not on file Years of education: Not on file Highest education level: Not on file Occupational History Not on file Social Needs Financial resource strain: Not on file Food insecurity: Worry: Not on file Inability: Not on file Transportation needs: Medical: Not on file Non-medical: Not on file Tobacco Use Smoking status: Light Tobacco Smoker Types: Cigarettes Smokeless tobacco: Never Used Tobacco comment: 1 pack a month Substance and Sexual Activity Alcohol use: Yes Comment: glass of wine once a month Drug use: No Sexual activity: Yes Partners: Male control/protection: I.U.D. Comment: allison for 1 year in 2018 Lifestyle Physical activity: Days per week: Not on file Minutes per session: Not on file Stress: Not on file Relationships Social connections: Talks on phone: Not on file Gets together: Not on file Attends nondenominational service: Not on file Active member of club or organization: Not on file Attends meetings of clubs or organizations: Not on file Relationship status: Not on file Intimate partner violence: Fear of current or ex partner: Not [...] Works REVIEW OF SYSTEMS: Review of Systems Psychiatric/Behavioral: Positive for depression. Negative for substance abuse. The patient is nervous/anxious and has insomnia. Recently hospitalized for suicidal thoughts - pt states not having those anymore Objective PHYSICAL EXAM: VITALS: BP 118/60 | Pulse 97 | Ht 5' 4" (1.626 m) | SpO2 97% | BMI 23.00 kg /m Body mass index is 23 kg/m. Physical Exam Vitals signs reviewed. Constitutional: General: She is not in acute distress. Appearance: Normal appearance. Skin: General: Skin is warm and dry. Neurological: Mental Status: She is alert and oriented to person, place, and time. Psychiatric: Mood and Affect: Mood normal. ASSESSMENT / IMPRESSION: ICD-9-CM ICD-10-CM 1. Anxiety and depression 300.00 F41.9 311 F32.9 2. Suicidal ideations V62.84 R45.851 Plan Advised pt to discuss need for support animal with psychiatrist - she has an appointment with him later today Also advised pt to make appointment with new PCP soon Author: MARIAM Baer 10/10/2019 14:53 documented in this encounter Plan of Treatment Health Maintenance Due Date Last Done Comments PNEUMOCOCCAL 0-64 YRS (1 of - 1998 PPSV23) HPV IMMUNIZATION SERIES ( - 2007 Female 3-dose series) INFLUENZA VACCINE (#1) 2019 PAP SMEAR 07/17/2020 Postponed from 2013 (Patient refused) DEPRESSION SCREENING 12/10/2021 Postponed from 2004 (Other) MENINGOCOCCAL VACCINE IMM Aged Out No longer eligible based on patient's age to complete this topic documented as of this encounter Goals Goal Patient Goal Associated Recent Patient-Stated? Author Type Problems Progress Depression Depression No Alf Tyler screen (PHQ-9) DO Tracie total score < 5 Note: This is an individualized treatment (depression) goal for Scarlet Luis: Displayed above is your goal for a depression screening (PHQ-9) score that would indicate good control of your depression. Keep a regular sleep schedule Lifestyle No Alf Tyler DO Note: This is an individualized lifestyle goal for Scarlet Luis: Please maintain a regular sleep schedule. This may help with some symptoms of depression. Take all prescribed medications as directed Self-management No Alf Tyler DO Note: This is an individualized self-management [...] ongoing basis. documented as of this encounter Results Not on filedocumented in this encounter Visit Diagnoses Diagnosis Anxiety and depression - Primary Dysthymic disorder Suicidal ideations Suicidal ideation documented in this encounter Insurance Payer Benefit Plan / Subscriber ID Effective Dates Phone Address Type Group [place] xxxxxxxx 2019-Present Medicaid [place] documented as of this encounter
[2019-12-01 23:52] LABS: ABS Eosinophils 0.2 10^3/ul (0-0.6); ABS Lymphocytes 1.8 10^3/ul (1.0-4.8); ABS Monocytes 0.6 10^3/ul (0-0.8); ABS Neutrophils 4.4 10^3/ul (1.5-7.7); Eosinophil % 2.4 %; Hematocrit 37 % (35-47); Hemoglobin 12.6 g/dL (12.0-16.0); Lymphocyte % 25.9 %; Mean Corpuscular HGB Conc 34 g/dL (31-36); Mean Corpuscular Hemoglobin 29 pg (27-31); Mean Corpuscular Volume 84 fL (80-97); Mean Platelet Volume 7.2 fL (7.4-10.4); Platelet Count 227 10^3/uL (150-450); Red Blood Count 4.37 10^6 /uL (3.70-4.87); Red Cell Distribution Width 13 % (10-15); White Blood Count 6.9 10^3/uL (3.5-10.8)
[2019-12-02 00:09] LABS: ALT 21 U/L (7-52); AST 19 U/L (13-39); Albumin 4.3 g/dL (3.2-5.2); Alkaline Phosphatase 80 U/L (34-104); Anion Gap 7 mmol/L (2-11); Blood Urea Nitrogen 10 mg/dL (6-24); C Reactive Protein < 1.00 mg/L (<8.01); CO2 Carbon Dioxide 25 mmol/L (22-32); Calcium 8.8 mg/dL (8.6-10.3); Chloride 106 mmol/L (101-111); EGFR African American 99.8 (>60); EGFR Non-African American 82.5 (>60); Globulin 2.1 g/dL (2-4); Glucose 104 mg/dL (70-100); Magnesium 1.8 mg/dL (1.9-2.7); Potassium 3.2 mmol/L (3.5-5.0); Sodium 138 mmol/L (135-145); Total Protein 6.4 g/dL (6.4-8.9)
[2019-12-02] MEDS ORDERED: Potassium Chlor TAB* 20 MEQ TAB.ER PO ONE (00:14)
[2019-12-02 00:16] LABS: HCG Pregnancy < 0.60 mIU/mL
[2019-12-02 00:17] LABS: Urine Appearance Clear; Urine Bilirubin Negative (Negative); Urine Blood Negative (Negative); Urine Color Straw; Urine Glucose Negative (Negative); Urine Ketones Negative (Negative); Urine Nitrite Negative (Negative); Urine Protein Negative (Negative); Urine Specific Gravity 1.008 (1.010-1.030); Urine Urobilinogen Negative (Negative)
[2019-12-02 00:20] LABS: Urine Bacteria Absent (Absent); Urine Red Blood Cell Absent (Absent); Urine Squamous Epithelial Cell Present (Absent); Urine White Blood Cell 2+(11-20/hpf) (Absent)
[2019-12-02 00:33] LABS: Alcohol < 10 mg/dL (<10)
[2019-12-02 00:33] LABS: Urine Benzodiazepine Screen None Detected (None Detect); Urine Opiates Screen None Detected (None Detect)
[2019-12-02 00:48] LABS: TSH (Thyroid Stimulating Horm) 3.41 mcIU/mL (0.34-5.60)
[2019-12-02] MEDS ORDERED: NS 0.9% 1000 ML** 1,000 ML IV ONE (00:51)
--- NOTE | 2019-12-02 01:19 | ED ---
Progress - Progress Note Progress Note: Accompanied JOHAN Rogers, to pt bedside. Pt's exam notable for mild somnolence, along with marked truncal and fine motor ataxia. Visual henry are intact to confrontation. Pt is unable to stand unaided. Course/Dx - Course Course Of Treatment: Accompanied JOHAN Rogers, to pt bedside. Pt's exam notable for mild somnolence, along with marked truncal and fine motor ataxia. Visual henry are intact to confrontation. Pt is unable to stand unaided. I agree with plan of care as made by Perez. Pt to be admitted to [facility]. - Diagnoses Provider Diagnoses: Syncope, Blurry vision, Ataxia, Altered mental status Discharge ED - Sign-Out/Discharge Documenting (check all that apply): Patient Departure - Discharge Plan Condition: Stable Disposition: ADMITTED TO [facility] - Billing Disposition and Condition Condition: STABLE Disposition: Admitted to [facility] - Attestation Statements Document Initiated by Scribe: Yes Documenting Scribe: Gabriella Phillips Provider For Whom Tyrese is Documenting (Include Credential): Gomez Rowe MD. Scribe Attestation: Gabriella Nolasco, vikaed for Gomez Rowe MD. on 12/06/19 at 0454. Scribe Documentation Reviewed: Yes Provider Attestation: The documentation as recorded by the Gabriella tovar accurately reflects the service I personally performed and the decisions made by me, Gomez Rowe MD. Status of Scribe Document: Viewed
[2019-12-02] MEDS ORDERED: Iohexol 350* (CONTRAST) 500 ML MDV IV ONE (01:22)
[2019-12-02] MEDS ORDERED: Magnesium Sulfate 2 GM IV* 2 GM/50 ML BAG IVPB ONE (02:46)
[2019-12-02] MEDS: NS 0.9% 1000 ML** 1,000 ML IV SCH ×2 (04:25→14:49)
[2019-12-02] MEDS: QUEtiapine TAB* 300 MG PO SCH ×2 (04:34→20:18)
--- NOTE | 2019-12-02 04:43 | HP ---
HISTORY AND PHYSICAL: DATE OF ADMISSION: 12/02/19 PRIMARY CARE PROVIDER: The patient does not have a primary care provider listed. CHIEF COMPLAINT: Syncopal episode. HISTORY OF PRESENT ILLNESS: This is a 29-year-old female with past medical history of depression, anxiety, bipolar disorder, who presents to the emergency room after having a syncopal episode. 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 The patient reports that prior to the episode, she was having some palpitations, feeling of lightheadedness, and as if her vision was getting blurry. No prior episodes. Her chest pain is now resolved. Currently, she does not have any palpitations. There was no nausea, no vomiting , no seizure-like activity. There is no loss of urine or feces at that time. In the emergency room, the patient was seen and evaluated, imaging were obtained. In the emergency room, Dr. Love, neurologist was contacted, who recommended obtaining a MRI and admitting the patient to the hospital. Subsequently, the hospitalist service was called. PAST MEDICAL HISTORY: 1. Anxiety. 2. Bipolar. 3. Depression. PAST SURGICAL HISTORY: . MEDICATIONS: Home medications include: 1. Seroquel 300 mg daily. 2. Prazosin 3 mg daily. 3. Paroxetine 60 mg daily. 4. Klonopin 1 mg t.i.d. ALLERGIES: No known drug allergies. FAMILY HISTORY: Mother: Diabetes. Father: Liver cirrhosis. SOCIAL HISTORY: The patient lives at home. 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 She does not smoke. She states that she does not drink alcohol anymore, her last drink was about a month ago. REVIEW OF SYSTEMS: The patient does not have any fevers, no chills, she does have an episode of lightheadedness and passing out. No recent change in her weight. She had an episode of chest pain with palpitations, this resolved. There is no shortness of breath, no cough, no sputum production, no change in her vision or hearing, although during the episode, she did have an episode of blurry vision. She has not had any abdominal pain, no nausea, no vomiting, no diarrhea. No headaches, no seizure-like activity. Otherwise, a full review of system was done and is otherwise negative, otherwise listed in the HPI. PHYSICAL EXAMINATION GENERAL: This is a young female, well developed, well nourished, lying in the ER stretcher, slightly anxious appearing in no acute distress. VITAL SIGNS: Her blood pressure is 133/85, heart rate of 54, respiratory rate of 14, saturation of 99% on room air. HEENT: Pupils are equal, round, reactive to light. There is no nystagmus appreciated. Her tongue is midline. There is no facial droop. No evidence of tongue biting. NECK: Supple. There is no thyromegaly. LUNGS: There is no tachypnea, no use of accessory muscles. Lungs are clear without any wheezing, rales, or rhonchi. HEART: There is no chest wall tenderness, regular bradycardia, no murmurs. ABDOMEN: Normoactive bowel sounds in all 4 quadrants. Abdomen is soft, nontender, and nondistended. EXTREMITIES: There is no lower extremity edema, no calf tenderness. NEUROLOGIC: She is awake, alert, oriented x3, following all commands. There is no dysmetria, no dysdiadochokinesia. DTRs are 2+ bilaterally. Motor is 5/5 in all 4 extremities. DIAGNOSTIC STUDIES/LAB DATA: White blood cells of 6.9, hemoglobin 12.6, hematocrit of 37, platelets of 227. Sodium of 138, potassium of 3.2, chloride of 106, bicarbonate of 25, BUN of 10, creatinine of 0.83, glucose of 104, magnesium of 1.8, calcium of 8.8. AST of 19, ALT 21. CRP of less than 1.00. TSH 3.41. HCG quant is less than 0.6. Urinalysis: Specific gravity of 1.008, leuko esterase of 2+, wbc's of 2+, squamous cells were present, yeast present, bacteria absent. Toxicology is negative for opiates, barbiturates, phencyclidine , amphetamines, benzos, cocaine, cannabinoids. Serum alcohol is less than 10. The patient underwent an EKG, which revealed sinus bradycardia with a heart rate of 55. The patient also had a brain CT, which revealed no acute intracranial abnormality. Head CTA shows no stenosis, no dissection or occlusion. Her thyroid gland shows large heterogeneity enhancing nodule in the left lobe of the thyroid gland measuring up to 22 mm. Further evaluation with an ultrasound is recommended. IMPRESSION AND PLAN: 1. Syncopal episode. According to the ER, there was an episode of nystagmus and akathisia. MRI has been ordered. We will follow up the MRI results. Continue IV fluids and orthostatic vitals. 2. Abnormal thyroid as seen on the CAT scan. Outpatient thyroid ultrasound is recommended, her TSH is within normal limits currently. 3. History of anxiety, bipolar, depression: Continue home medications with the exception of benzos as this could interfere with her current symptomatology. 4. Hypokalemia and hypomagnesemia. Repletion has been ordered. [id number]/[facility] #: [id number] ANABELA
[2019-12-02] MEDS: PARoxetine HCL TAB* 20 MG PO SCH (08:20)
[2019-12-02 15:56] LABS: ABS Eosinophils 0.2 10^3/ul (0-0.6); ABS Lymphocytes 1.4 10^3/ul (1.0-4.8); ABS Monocytes 0.5 10^3/ul (0-0.8); ABS Neutrophils 5.3 10^3/ul (1.5-7.7); Eosinophil % 2.5 %; Hematocrit 37 % (35-47); Hemoglobin 12.7 g/dL (12.0-16.0); Lymphocyte % 18.7 %; Mean Corpuscular HGB Conc 34 g/dL (31-36); Mean Corpuscular Hemoglobin 29 pg (27-31); Mean Corpuscular Volume 84 fL (80-97); Mean Platelet Volume 7.4 fL (7.4-10.4); Platelet Count 222 10^3/uL (150-450); Red Blood Count 4.41 10^6 /uL (3.70-4.87); Red Cell Distribution Width 13 % (10-15); White Blood Count 7.4 10^3/uL (3.5-10.8)
[2019-12-02 16:15] LABS: BUN/Creatinine Ratio 7.8 (8-20); Calcium 8.3 mg/dL (8.6-10.3); EGFR African American 108.8 (>60); EGFR Non-African American 89.9 (>60); Potassium 3.8 mmol/L (3.5-5.0)
--- NOTE | 2019-12-02 16:55 | PN ---
Subjective Date of Service: 12/02/19 Objective Active Medications: Clonazepam (Klonopin Tab(*)) 1 mg PO TID PRN PRN Reason: anxiety/panic Gabapentin (Neurontin Cap(*)) 400 mg PO TID [facility] Paroxetine HCl (Paxil Tab*) 60 mg PO DAILY [facility] Last Admin: 12/02/19 08:20 Dose: 60 mg Quetiapine Fumarate (Seroquel Tab*) 300 mg PO BEDTIME [facility] Last Admin: 12/02/19 04:34 Dose: 300 mg Vital Signs - 8 hr 12/02/19 12/02/19 12/02/19 09:19 11:15 15:15 Temperature 98.3 F 97.5 F Pulse Rate 92 55 62 Respiratory 16 16 Rate Blood Pressure 99/62 104/61 105/53 (mmHg) O2 Sat by Pulse 98 98 Oximetry Oxygen Devices in Use Now: None Result Diagrams: 12/02/19 15:42 12/02/19 15:42 Assess/Plan/Problems-Billing Assessment:
--- NOTE | 2019-12-02 17:45 | PN ---
Hospitalist Progress Note Date of Service: 12/02/19 Brief update since admission at approx 0300 Patient somnolent in the AM due to receiving seroquel at 0430 for unclear reasons. Evaluated patient in afternoon when awake and is without complaints. Denies visual changes, chest pain, weakness, dizziness. Physical exam: General: young, white female, laying in bed, appearing comfortable and in NAD ENT: EOMI, no nystagmus, PERRLA, sclerae anicteric Lungs: clear to ausc Cardio: RRR without m/r/g Abd: soft, nontender, nondistended Ext: no edema, clubbing Neuro: sensation grossly intact throughout, strength 5/5 all extremities, face symmetrical, speech clear, alert and oriented x 3, no appreciable ataxia A&P: 29 yo with PMHx panic disorder, anxiety, BPD admitted for syncopal event and reported ataxia and weakness after syncope -orthostatics not performed in ED unfortunately, not orthostatic on floor but had already received 2 L IVF -I suspect vasovagal syncope as patient had episode after onset of chest pressure was was feeling onset of panic -additionally I believe her prazosin is contributing and will d/c, she has outpatient f/u with psych scheduled (prazosin is for nightmares) -MRI brain pending, delayed for machine being down today -tele without concerns, bradycardic while asleep and patient is young and athletic -continue home medication otherwise: gabapentin, klonopin, paxil, seroquel
[2019-12-02] MEDS: clonazePAM TAB(*) 1 MG PO PRN (18:04)
[2019-12-02] MEDS ORDERED: hydrOXYzine HCL TAB* 25 MG PO PRN (19:26)
[2019-12-02] MEDS: Gabapentin CAP(*) 400 MG PO SCH (20:18)
[2019-12-02] MEDS ORDERED: QUEtiapine TAB* 300 MG PO SCH (21:00)
[2019-12-03 08:00] VITALS: BP 104/79
[2019-12-03] MEDS: Gabapentin CAP(*) 400 MG PO SCH (08:01)
[2019-12-03] MEDS: PARoxetine HCL TAB* 20 MG PO SCH (08:01)
[2019-12-03] MEDS: clonazePAM TAB(*) 1 MG PO PRN (08:01)
--- NOTE | 2019-12-03 21:22 | DS ---
CC: Dr. Watt; Dr. Forte * DISCHARGE SUMMARY: DATE OF ADMISSION: 12/02/19 DATE OF DISCHARGE: 12/03/19 PROVIDER: JOHAN Joseph ATTENDING PHYSICIAN WHILE IN THE HOSPITAL: Bill Rice MD * (dictated by JOHAN Joseph). PRIMARY CARE PROVIDER: None. PRIMARY DIAGNOSIS: Syncope likely combination use of prazosin and vasovagal syncope. SECONDARY DIAGNOSES: 1. Nightmares. 2. Bipolar disorder. 3. Anxiety. 4. Panic. PERTINENT STUDIES/LAB DATA: Brain CT on 12/02/19, impression: No acute intracranial abnormality. Head and neck CTA on 12/02/19, impression: No stenosis. No dissection or occlusion. Mild increased interstitial markings in the lungs, likely edema. No lesions, stenosis, or aneurysm. MRI of the brain on 12/02/19, impression: No acute intracranial abnormality. HISTORY OF PRESENT ILLNESS/HOSPITAL COURSE: Scarlet Luis is a 29-year-old white female with past medical history significant for anxiety with history of panic, bipolar disorder, nightmares, who presents to the emergency department after a syncopal episode. She was feeling chest pressure and felt as if an onset of panic attack was about to occur, so she sat down. She then upon standing up, had a witnessed syncopal episode. Reportedly, the emergency department, upon their evaluation found ataxia and gaze deviation though this was not found by the hospitalist, admitting provider Dr. Ledbetter, and thus she was admitted OBV for observation and a brain MRI. She was neurologically within normal limits. On day of discharge, including having a normal gait, no ataxia or gaze deviation found. She was admitted on telemetry and no arrhythmias were noted. During her hospitalization, the patient was feeling back to her normal self without any complaints, safe for discharge. Unfortunately, the patient's orthostatic vitals were not obtained until after she had received over 2 L of fluid and she was not found to be orthostatic. Though it is quite possible that this is also a contributing factor as she did mention that she was not eating or drinking well on the day of her syncopal episode. PHYSICAL EXAM ON DAY OF DISCHARGE: General: Young white female, sitting in the hospital bed, appearing comfortable, in no acute distress. Eyes: PERRL. Sclerae anicteric. EOMI: No nystagmus. ENT: Mucous membranes are moist. Lungs: Chest expansion equal and symmetrical. Cardio: No edema. Abdomen: Soft. Neuro: The patient is alert and oriented x3. No focal deficits. Speech is clear. Able to move all extremities. Gait is within normal limits and on heels. Skin: Warm, dry, and intact. DISCHARGE PLAN: Diet: Regular and unrestricted diet. Activity: The patient may return to normal activity as tolerated. DISCHARGE INSTRUCTIONS: The patient was advised to follow up with her psychiatrist as previously scheduled at the end of this month. I advised her to discontinue prazosin as we did discuss this does frequently have adverse effects of syncope. Additionally, the patient does not have primary care provider and I did recommend that she have follow up regarding this hospitalization and she is recommended to go to the [facility]. The patient was not found to have any arrhythmias and there are at least 3 alternate that are more likely diagnosis of arrhythmia and I do not believe the Holter monitor is needed at this time. She was advised to discuss further alternate medication use and prazosin with her psychiatrist if she is beginning to have nightmares. She was advised to return to the emergency department for chest pain; difficulty breathing; seizure activity; weakness, numbness, tingling in her extremities; loss of consciousness or other concerning symptoms. Continued Home Medications: 1. Gabapentin 400 mg p.o. t.i.d. 2. Seroquel 300 mg p.o. at bedtime. 3. Paxil 60 mg p.o. daily. 4. Klonopin 1 mg p.o. t.i.d. p.r.n. panic. Discontinued Medications: 1. Prazosin. CONDITION ON DISCHARGE: Stable. DISPOSITION: Home. TIME SPENT: Approximately 35 minutes was spent on this discharge, approximately half of this time was spent at bedside evaluating the patient and discussing the plan of care. JOHAN JOSEPH [id number]/[facility] #: [id number] MTDD
== END 2019-12-03 09:04 | disposition home or self-care (01) ==
LOC: ED 22:56 → MEDTELE 12-02 02:44
PROVIDERS: ADMIT Internal Medicine; ATTEND Internal Medicine
DX: R55 Syncope and collapse (principal); F51.5 Nightmare disorder; G47.9 Sleep disorder, unspecified; F31.9 Bipolar disorder, unspecified; F41.0 Panic disorder [episodic paroxysmal anxiety]; Z79.899 Other long term (current) drug therapy; R41.82 Altered mental status, unspecified
CPT/HCPCS: 36415; 70450; 70496; 70498; 70551; 80048; 80053; 80307; 80320; 81003; 81015; 83735; 84443; 84702; 85025; 86140; 87086; 93005; 96361; 96374; 99285; A9270-GY; G0378; G0480; J3475; Q9967